=== PATIENT | female | born 1985 | race Caucasian/White ===

== ENCOUNTER 2022-10-08 15:13 | Emergency (ER) | payer OTHER, SELFPAY ==
[2022-10-08 15:14] VITALS: BP 141/83; PULSE 86; RESP 20; TEMP 36.9; O2SAT 98; BMI 53.3
--- NOTE | 2022-10-08 16:20 | EDS_ITS ---
HPI HPI - URI History of Present Illness Chief Complaint: Cough Narrative Narrative: 37-year-old female presenting with cough which has had for several weeks after having COVID-19. She no longer has fevers, chills. She does describe some body aches from time to time. She is been seen in urgent care twice and put on 2 rounds of steroids. She has not been on any antibiotics. She states she had a chest x-ray 2 weeks ago which was normal. She is taking Mucinex, [id number] cold medicine and she states its just not going away. She reports a dry raspy cough. No production of sputum. No chest pain. No history of asthma or COPD. She states she is a non-smoker. ROS ROS ED Constitutional Constitutional ED: Denies chills or fever(s) Eyes Eyes: Denies change in vision or diplopia ENT ENT ED: Denies rhinorrhea or sore throat Cardiovascular Cardiovascular: Denies palpitations or racing heartbeat Respiratory/Chest Respiratory/Chest: Reports cough; Denies dyspnea Gastrointestinal Gastrointestinal: Denies abdominal pain, nausea or vomiting Genitourinary Genitourinary ED: Denies dysuria or hematuria Musculoskeletal Musculoskeletal: Reports myalgias Integumentary Denies abscess or Abrasions Neurologic Neurologic: Denies headache(s) or paresthesias Psychiatric Psychiatric: Denies anxiety or depression [facility] Medical History COVID Home Medications docusate sodium 100 mg capsule (DOK) 100 mg PO BID PRN PRN Constipation ##60 02/04/16 [Rx Last Taken Unknown] ibuprofen 600 mg tablet 600 mg PO Q6H PRN PRN Pain ##60 02/04/16 [Rx Last Taken Unknown] albuterol sulfate 90 mcg/actuation aerosol inhaler 2 puff inhalation Q6H PRN PRN SOB 10/08/22 [History Last Taken Unknown] Allergy/AdvReac Type Severity Reaction Status Date / Time No Known Allergies Allergy Verified 10/08/22 15:14 Social History Smoking Status: Current every day smoker tobacco type: cigarettes EXAM Physical Exam Const Vital Signs: 10/08/22 15:14 10/08/22 16:40 Temperature 98.5 F Temperature Source Temporal Pulse Rate 86 Respiratory Rate 20 H Respiratory Effort Normal Non-Labored Respiratory Depth Normal Respiratory Pattern Normal Blood Pressure 141/83 H Blood Pressure Mean 102 Pulse Ox 98 Oxygen Delivery Method Room Air Room Air Positive well nourished General Appearance ED: NAD and pallor HEENT Reports moist mucous membranes normocephalic and atraumatic Throat: posterior oropharynx normal Eyes PERRL and EOMs intact bilaterally Neck no lymphadenopathy Resp normal respiratory effort and clear to auscultation bilaterally Auscultation: Negative for rales, rhonchi or wheezes Cardio Rate: regular rate Rhythm: regular rhythm Neuro oriented x3 and CN's II-XII intact bilaterally Sensorium / Orientation: alert Psych mental status grossly normal Skin General Skin Exam: jaundice and pallor MDM MDM MDM Narrative Medical decision making narrative: Patient presenting with a chronic cough now for several weeks. She had a chest x-ray 2 weeks ago. I do not think viral testing is going to help year because this been so long. She is not reporting any fevers. She is not short of breath. 2 views of the chest on my interpretation show no acute cardiopulmonary process. Radiology interpreted agrees. This has been an ongoing issue and the patient has arranged follow-up. I feel she is already on the appropriate medications. I do not believe she needs another round of steroids. Patient discharged in stable condition. Impression: 1. Cough 2. Dyspnea Lab Data Attestation: I reviewed the patient's lab results. Radiography Diagnostic Testing: Clinical Impression(s) from Imaging Studies Chest X-Ray 10/08/22 16:30 IMPRESSION: No acute abnormal cardiopulmonary finding. Electronically Signed: Azeem Moreno MD at 16:57 EST , Discharge Plan Triage Chief Complaint: Cough ED Provider: Dilshad Lomeli Dx/Rx/DC Orders Instructions: ED Dyspnea Prescriptions: No Action docusate sodium [DOK] 100 MG capsule 100 mg PO BID PRN PRN (Reason: Constipation) Qty: 60 1RF ibuprofen 600 MG tablet 600 mg PO Q6H PRN PRN (Reason: Pain) Qty: 60 1RF albuterol sulfate 90 mcg/actuation HFA aerosol inhaler 2 puff INHALATION Q6H PRN PRN (Reason: SOB) Label Comments: INHALE 1 PUFF BY MOUTH THREE TIMES DAILY NEEDED FOR 14 DAYS Primary Care Provider: Sana Garcia Referrals: Sana Garcia MD [Primary Care Provider] - Disposition Disposition: Home, Self Care
--- NOTE | 2022-10-08 16:30 | RAD_ITS ---
STUDY: X-RAY CHEST REASON FOR EXAM: Female, 37 years old. Cough TECHNIQUE: PA and lateral views of the chest. COMPARISON: None. FINDINGS: The lungs are clear and expanded. There is no demonstrated pleural abnormality. Normal size heart. Normal mediastinum and juice. Normal visualized pulmonary arteries. Normal visualized aortic arch and descending thoracic aorta. There is no demonstrated abnormality of the visualized soft tissue structures of the upper abdomen. RAD/Chest PA and Lateral IMPRESSION: No acute abnormal cardiopulmonary finding. Electronically Signed: Azeem Moreno MD at 16:57 EST ,
[2022-10-08 16:40] VITALS: O2SAT 98
[2022-10-08 19:14] VITALS: BP 121/71; PULSE 88; RESP 22; O2SAT 96
== END 2022-10-08 19:21 | disposition home or self-care (01) ==
PROVIDERS: Emergency Provider Student in an Organized Health Care Education/Training Program; PCP Internal Medicine; Visit Provider Student in an Organized Health Care Education/Training Program
DX: R06.00 Dyspnea, unspecified (principal); R05.9 Cough, unspecified; F17.210 Nicotine dependence, cigarettes, uncomplicated
CPT/HCPCS: 71046; 99282

== ENCOUNTER → 2022-10-14 | Outpatient (CLI) | payer OTHER, SELFPAY ==
[2022-10-14 17:06] LABS: Absolute Neutrophil Count 7.4 X10^3/uL (2.0-7.7); Basophil# 0.15 X10^3/uL; Basophil% 1.2 % (0-1); Eosinophil# 0.46 X10^3/uL; Eosinophils% 3.7 % (0-5); Hematocrit 42.5 % (37-47); Hemoglobin 14.4 g/dL (12.0-15.0); Lymphocyte % 27.4 % (19-41); Mean Corp Hgb Conc 33.9 g/dL (32-36); Mean Corpuscular Hgb 28.9 pg (27.0-32.0); Mean Corpuscular Volume 85.2 fL (81-99); Mean Platelet Vol. 8.3 fl (6.2-12.0); Monocyte# 0.89 X10^3/uL; Monocyte% 7.2 % (0-10); NRBC Flagged by Analyzer 0 % (0-5); Neutrophil # 7.41 X10^3/uL (2.7-7.7); Neutrophil % 59.7 % (47-70); Platelet Count 543 K/mm3 (150-450); RBC Distribution Width SD 39.4 fl (35.1-43.9); Red Blood Count 4.99 M/mm3 (4.2-5.4); White Blood Count 12.4 K/mm3 (4.4-11.0)
[2022-10-14 18:08] LABS: ALB/GLOB Ratio 1.1 RATIO (0.9-2.4); AST(SGOT) 18 U/L (15-37); Alanine Aminotransfer ALT/SGPT 34 U/L (13-56); Albumin, Serum 3.9 g/dL (3.2-5.0); Alkaline Phosphatase 55 U/L (45-117); Anion Gap 5 (5-15); BUN 15 mg/dL (7-18); BUN/Creat Ratio 15.8 RATIO (10-20); Calcium,Total 9.4 mg/dL (8.5-10.1); Chloride 110 mmol/L (98-107); Creatinine, Serum 0.95 mg/dL (0.55-1.02); EST Glomerular Filtration Rate 70 mL/min (>60); Est Glom Filt Rate - Afr Amer 85 mL/min (>60); Globulin 3.6 g/dL (2.2-4.2); Glucose 98 mg/dL (74-106); Potassium 4.7 mmol/L (3.5-5.1); Protein, Total 7.5 g/dL (6.4-8.2); Sodium Level 141 mmol/L (136-145)
[2022-10-18 19:08] LABS: Mycoplasma Pneum AB IgG 211 U/mL (0-99); Mycoplasma pneum. AB IgM < 770 U/mL (0-769)
== END | disposition home or self-care (01) ==
LOC: BIMLAB 16:14
PROVIDERS: PCP Internal Medicine; Referring Provider Internal Medicine; Visit Provider Internal Medicine
DX: R05.3 Chronic cough (principal); Z20.822 Contact with and (suspected) exposure to COVID-19
CPT/HCPCS: 36415; 80053; 85025; 86738; 87633; 87635; U0003; U0005

== ENCOUNTER → 2022-10-21 | Outpatient (CLI) | payer OTHER, SELFPAY ==
--- NOTE | 2022-10-21 13:50 | CT_ITS ---
STUDY: CT CHEST WITH CONTRAST REASON FOR EXAM: Female, 37 years old. Persistent cough, shortness of breath RADIATION DOSAGE (If Supplied By Facility): CTDIvol = ( 14.88 ) mGy, DLP = ( 702.25 ) mGycm TECHNIQUE: Transaxial imaging was performed following intravenous administration of IV 100mL Isovue-300. Multiplanar coronal and sagittal images were reformatted. Individualized dose optimization techniques were used for this CT. COMPARISON: Comparison is made with prior chest radiograph dated 10/08/2022. FINDINGS: CHEST Mild degree of increased markings in the anterior aspect of the left upper lobe. This may represent either early infiltrate versus atelectatic changes. There is no demonstrated pleural abnormality. Normal heart and pericardium. Normal mediastinum. Normal hilar regions. Normal unenhanced pulmonary arteries. Normal aorta arch and descending thoracic aorta. Normal osseous structures. There is no demonstrated abnormality of the visualized upper abdomen. CT/Chest WITH Contrast IMPRESSION: Increased markings in the anterior aspect of the left upper lobe suggestive of either atelectasis and/or early infiltrate. Electronically Signed: Regan Han MD at 14:40 EST ,
== END | disposition home or self-care (01) ==
LOC: CT 13:33
PROVIDERS: PCP Internal Medicine; Referring Provider Internal Medicine; Visit Provider Internal Medicine
DX: R06.02 Shortness of breath (principal); R05.3 Chronic cough
CPT/HCPCS: 71260; Q9967

== ENCOUNTER → 2022-11-08 | Outpatient (CLI) | payer OTHER, SELFPAY ==
[2022-11-08 10:28] LABS: Absolute Lymphocyte Count 3.38 X10^3/uL (0.83-4.51); Absolute Neutrophil Count 5.2 X10^3/uL (2.0-7.7); Basophil# 0.11 X10^3/uL; Basophil% 1.1 % (0-1); Eosinophil# 0.28 X10^3/uL; Eosinophils% 2.8 % (0-5); Hematocrit 41.5 % (37-47); Hemoglobin 13.7 g/dL (12.0-15.0); Lymphocyte # 3.38 X10^3/ul (0.83-4.51); Lymphocyte % 33.3 % (19-41); Mean Corpuscular Hgb 28.1 pg (27.0-32.0); Mean Corpuscular Volume 85.2 fL (81-99); Mean Platelet Vol. 8.1 fl (6.2-12.0); Monocyte% 10.8 % (0-10); NRBC Flagged by Analyzer 0 % (0-5); Neutrophil # 5.24 X10^3/uL (2.7-7.7); Neutrophil % 51.5 % (47-70); Platelet Count 531 K/mm3 (150-450); RBC Distribution Width SD 40.1 fl (35.1-43.9); Red Blood Count 4.87 M/mm3 (4.2-5.4); White Blood Count 10.2 K/mm3 (4.4-11.0)
[2022-11-08 10:40] LABS: Anion Gap 6 (5-15); BUN 19 mg/dL (7-18); BUN/Creat Ratio 22.6 RATIO (10-20); Calcium,Total 9.1 mg/dL (8.5-10.1); Chloride 107 mmol/L (98-107); Creatinine, Serum 0.84 mg/dL (0.55-1.02); EST Glomerular Filtration Rate 81 mL/min (>60); Est Glom Filt Rate - Afr Amer 97 mL/min (>60); Glucose 96 mg/dL (74-106); Potassium 4.5 mmol/L (3.5-5.1); Sodium Level 139 mmol/L (136-145)
== END | disposition home or self-care (01) ==
PROVIDERS: PCP Internal Medicine; Referring Provider Internal Medicine; Visit Provider Internal Medicine
DX: U07.1 COVID-19 (principal); J40 Bronchitis, not specified as acute or chronic; Z87.01 Personal history of pneumonia (recurrent)
CPT/HCPCS: 36415; 80048; 85025

== ENCOUNTER → 2022-12-29 | Outpatient (CLI) | payer OTHER, SELFPAY ==
--- NOTE | 2022-12-29 17:49 | CT_ITS ---
EXAM: CT ANGIOGRAPHY CHEST WITHOUT AND WITH INTRAVENOUS CONTRAST CLINICAL INDICATION: bronchiectasis vs. bronchitis LANEY lingula. TECHNIQUE: Helically acquired angiography images were obtained of the chest without and with intravenous contrast. This CT exam was performed using one or more of the following dose reduction techniques: automated exposure control, adjustment of the mA and/or kV according to patient size, and/or use of iterative reconstruction technique. This report was created using [employer] report generation technology. MIP reconstructed images were created and reviewed. CONTRAST: 100 cc of Isovue-370 IV. RADIATION DOSE: CTDIvol = 23.02 mGy, DLP = 715.43 mGy-cm. COMPARISON: 12/22/2021. FINDINGS: PULMONARY ARTERIES: Unremarkable. Normal in caliber. No evidence of pulmonary embolism. AORTA: Unremarkable. Normal in caliber. No evidence of dissection. GREAT VESSELS OF AORTIC ARCH: Unremarkable. Normal in caliber. No evidence of dissection. LUNGS AND PLEURAL SPACES: Focal area of scarring left upper lobe unchanged since previous exam. No mass. No pleural effusion or thickening. No pneumothorax. HEART: Unremarkable. Heart size is normal. No pericardial effusion. No signs of right heart strain, ratio of right ventricle to left ventricle measures less than 1. MEDIASTINUM: Unremarkable. No mediastinal or hilar adenopathy. Esophagus is unremarkable. No hiatal hernia. THYROID: Unremarkable. No thyroid lesions. BONES/JOINTS: Unremarkable. No suspicious lytic or blastic abnormality. CT/CTA Chest W/WO Contrast IMPRESSION: 1. No pulmonary embolism or dissection. 2. Focal area of scarring left upper lobe unchanged since previous exam. Electronically Signed: Hussain Diana MD at 4:15 EST ,
== END | disposition home or self-care (01) ==
LOC: CT 17:46
PROVIDERS: PCP Internal Medicine; Referring Provider Internal Medicine; Visit Provider Internal Medicine
DX: U07.1 COVID-19 (principal); J40 Bronchitis, not specified as acute or chronic; Z87.01 Personal history of pneumonia (recurrent)
CPT/HCPCS: 71275; Q9967

== ENCOUNTER → 2023-01-10 | Outpatient (CLI) | payer OTHER, SELFPAY ==
[2023-01-19 12:54] LABS: HPV APTIMA, High Risk Negative (Negative)
== END | disposition home or self-care (01) ==
PROVIDERS: PCP Internal Medicine; Referring Provider Nurse Practitioner Women's Health; Visit Provider Nurse Practitioner Women's Health
DX: Z12.4 Encounter for screening for malignant neoplasm of cervix (principal)
CPT/HCPCS: 87624; 88175; G0145

== ENCOUNTER → 2023-01-11 | Outpatient (CLI) | payer OTHER, SELFPAY ==
[2023-01-14 00:07] LABS: Alternaria tenuis <0.10 kU/L (Class 0); Ash, White <0.10 kU/L (Class 0); Aspergillus fumigatus <0.10 kU/L (Class 0); Bermuda Grass <0.10 kU/L (Class 0); Birch <0.10 kU/L (Class 0); Black Walnut <0.10 kU/L (Class 0); Cat Hair / Dander,Stand <0.10 kU/L (Class 0); Cedar, Mountain <0.10 kU/L (Class 0); Cladosporium herbarum <0.10 kU/L (Class 0); Cockroach, American <0.10 kU/L (Class 0); Cottonwood <0.10 kU/L (Class 0); D farinae Mite <0.10 kU/L (Class 0); D pteronyssinus <0.10 kU/L (Class 0); Dog Epithelia <0.10 kU/L (Class 0); Elm, American White <0.10 kU/L (Class 0); Immunoglobulin E 10 IU/mL (6-495); Maple/Box Elder <0.10 kU/L (Class 0); Mulberry, White <0.10 kU/L (Class 0); Oak, White <0.10 kU/L (Class 0); Pecan <0.10 kU/L (Class 0); Penicillium Notatum <0.10 kU/L (Class 0); Pigweed, Rough <0.10 kU/L (Class 0); Ragweed, Short/Common <0.10 kU/L (Class 0); Russian Thistle <0.10 kU/L (Class 0); Sheep Sorrel <0.10 kU/L (Class 0); Sycamore, American <0.10 kU/L (Class 0); Timothy Grass <0.10 kU/L (Class 0)
[2023-01-14 13:35] LABS: B. pertussis IgA 2.2 index (0.0-0.9); B. pertussis IgG 5.11 index (0.00-0.94); B. pertussis IgM < 1.0 index (0.0-0.9); Immunoglobulin E 9 IU/mL (6-495); Mouse Urine <0.10 kU/L (Class 0)
== END | disposition home or self-care (01) ==
PROVIDERS: PCP Internal Medicine; Referring Provider Internal Medicine; Visit Provider Internal Medicine
DX: R05.3 Chronic cough (principal)
CPT/HCPCS: 36415; 82785; 86003; 86615

== ENCOUNTER → 2024-03-30 | Outpatient (CLI) | payer OTHER, SELFPAY ==
--- NOTE | 2024-03-30 18:02 | US_ITS ---
HISTORY: bleeding. TECHNIQUE: Transabdominal and transvaginal pelvic ultrasound was performed with lozano scale , spectral Doppler, and color Doppler evaluation. 111 images. COMPARISON: None. FINDINGS: Limited evaluation due to body habitus and overlying bowel gas. UTERUS: 11.8 x 8.9 x 7.8 cm. 7.5 x 7.6 x 6 cm round hypoechoic lesion posteriorly. ENDOMETRIAL THICKNESS: 8 mm. RIGHT OVARY: 2.7 x 3 x 3.4 cm. Vascular flow demonstrated. No adnexal masses LEFT OVARY: Not visualized. No adnexal masses FREE FLUID: None. US/Pelvic (Non ) IMPRESSION: 7.6 cm uterine leiomyoma. Unremarkable right ovary. Nonvisualization of the left ovary. Electronically Signed: Giovana Nelson MD at 11:50 EDT ,
== END | disposition home or self-care (01) ==
LOC: US 18:00
PROVIDERS: PCP Internal Medicine; Visit Provider Nurse Practitioner Women's Health
DX: N85.2 Hypertrophy of uterus (principal); N92.0 Excessive and frequent menstruation with regular cycle; N94.6 Dysmenorrhea, unspecified
CPT/HCPCS: 76856

== ENCOUNTER 2024-05-08 11:55 | Outpatient (CLI) | payer OTHER, SELFPAY | END 2024-05-08 23:59 | disposition home or self-care (01) | LOC: LABSPEC 11:57 | PROVIDERS: PCP Internal Medicine; Referring Provider Nurse Practitioner; Visit Provider Nurse Practitioner | DX: J06.9 Acute upper respiratory infection, unspecified (principal) | CPT/HCPCS: 87631 ==

== ENCOUNTER → 2025-04-22 | Outpatient (CLI) | payer OTHER, SELFPAY ==
[2025-04-22 12:55] LABS: Absolute Lymphocyte Count 2.17 X10^3/uL (0.83-4.51); Absolute Neutrophil Count 3.5 X10^3/uL (2.0-7.7); Basophil# 0.11 X10^3/uL; Basophil% 1.7 % (0-1); Eosinophil# 0.17 X10^3/uL; Eosinophils% 2.6 % (0-5); Hematocrit 37.5 % (37-47); Hemoglobin 11.8 g/dL (12.0-15.0); Lymphocyte # 2.17 X10^3/ul (0.83-4.51); Mean Corp Hgb Conc 31.5 g/dL (32-36); Mean Corpuscular Volume 82.6 fL (81-99); Mean Platelet Vol. 8.7 fl (6.2-12.0); Monocyte# 0.58 X10^3/uL; Monocyte% 8.8 % (0-10); NRBC Flagged by Analyzer 0 % (0-5); Neutrophil # 3.51 X10^3/uL (2.7-7.7); Neutrophil % 53.4 % (47-70); Platelet Count 491 K/mm3 (150-450); RBC Distribution Width CV 13.1 % (11.6-14.6); Red Blood Count 4.54 M/mm3 (4.2-5.4); White Blood Count 6.6 K/mm3 (4.4-11.0)
[2025-04-22 14:01] LABS: ALB/GLOB Ratio 1.4 RATIO (0.9-2.4); AST(SGOT) 13 U/L (<=31); Alanine Aminotransfer ALT/SGPT 15 U/L (<=34); Alkaline Phosphatase 50 U/L (35-104); Anion Gap 10 (5-15); BUN 16 mg/dL (4-19); BUN/Creat Ratio 20.7 RATIO (10-20); Calcium,Total 8.8 mg/dL (7.6-11.0); Chloride 107 mmol/L (98-108); Cholesterol 134 mg/dL (<=200); Creatinine, Serum 0.79 mg/dL (0.70-1.20); EST Glomerular Filtration Rate 96 (>60); Globulin 2.9 g/dL (2.2-4.2); Glucose 100 mg/dL (70-99); High Density Lipoprotein 38 mg/dL; Low Density Lipoprotein Calc. 76 mg/dL; Potassium 4.2 mmol/L (3.3-5.1); Protein, Total 6.9 g/dL (5.9-8.4); Sodium Level 141 mmol/L (133-145); Total Bilirubin 0.53 mg/dL (0.00-1.30); Triglycerides 100 mg/dL; Very Low Density Lipoprotein 20 mg/dL (5-40)
[2025-04-22 14:05] LABS: Vitamin D,25 Hydroxy 32.8 ng/mL (30-100)
== END | disposition home or self-care (01) ==
LOC: BIMLAB 09:30
PROVIDERS: PCP Internal Medicine; Referring Provider Internal Medicine; Visit Provider Internal Medicine
DX: Z13.6 Encounter for screening for cardiovascular disorders (principal); I10 Essential (primary) hypertension; E55.9 Vitamin D deficiency, unspecified
CPT/HCPCS: 36415; 80053; 80061; 82306; 84443; 85025

== ENCOUNTER → 2025-05-06 | Outpatient (CLI) | payer OTHER, SELFPAY | END | disposition home or self-care (01) | LOC: OPBI 12:38 | PROVIDERS: PCP Internal Medicine; Referring Provider Internal Medicine; Visit Provider Internal Medicine | DX: Z12.31 Encounter for screening mammogram for malignant neoplasm of breast (principal) | CPT/HCPCS: 77063; 77067 ==

== ENCOUNTER → 2025-05-14 | Outpatient (CLI) | payer OTHER, SELFPAY ==
--- NOTE | 2025-05-14 12:31 | US_ITS ---
PROCEDURE: BREAST LIMITED UNILATERAL 05/14/2025 REASON FOR EXAM: F, Age 39 y/o , ABNORMAL MAMMOGRAM COMPARISON: Prior mammogram dated May 06, 2025.. TECHNIQUE: BREAST LIMITED UNILATERAL FINDINGS: The mammographic abnormality corresponds to a 1.7 cm 1.6 cm 1.1 cm well-defined hypoechoic nodule at the 8 o'clock position of the breast at 9 cm from the nipple. There is evidence of some posterior acoustical shadowing. This may represent a fibroadenoma although targeted biopsy recommended. US/Breast Limited Unilateral IMPRESSION: The mammographic abnormality corresponds to a 1.7 cm 1.6 cm 1.1 cm well-defined hypoechoic solid nodule with some posterior acoustical shadowing as described. This most likely represents a fibroadenoma. Biopsy recommended. BI-RADS 4: SUSPICIOUS ABNORMALITY. RECOMMENDATION: Biopsy Recommended Reading Location: [id number]
--- NOTE | 2025-05-14 12:31 | US_ITS ---
PROCEDURE: BREAST LIMITED UNILATERAL 05/14/2025 REASON FOR EXAM: F, Age 39 y/o , ABNORMAL MAMMOGRAM COMPARISON: Prior mammogram dated May 06, 2025.. TECHNIQUE: BREAST LIMITED UNILATERAL FINDINGS: The mammographic abnormality corresponds to a 1.7 cm 1.6 cm 1.1 cm well-defined hypoechoic nodule at the 8 o'clock position of the breast at 9 cm from the nipple. There is evidence of some posterior acoustical shadowing. This may represent a fibroadenoma although targeted biopsy recommended. US/Breast Limited Unilateral IMPRESSION: The mammographic abnormality corresponds to a 1.7 cm 1.6 cm 1.1 cm well-defined hypoechoic solid nodule with some posterior acoustical shadowing as described. This most likely represents a fibroadenoma. Biopsy recommended. BI-RADS 4: SUSPICIOUS ABNORMALITY. RECOMMENDATION: Biopsy Recommended Reading Location: [id number]
== END | disposition home or self-care (01) ==
LOC: OPUS 12:29
PROVIDERS: PCP Internal Medicine; Referring Provider Internal Medicine; Visit Provider Internal Medicine
DX: N63.11 Unspecified lump in the right breast, upper outer quadrant (principal)
CPT/HCPCS: 76642

== ENCOUNTER → 2025-05-20 | Outpatient (CLI) | payer OTHER, SELFPAY ==
--- NOTE | 2025-05-20 14:00 | BRBX_PTH ---
PATIENT: JORDIN TOBAR LOC: [facility] U#:[id number] AGE/SX: 39/F ROOM: RE05/20/[address]: Dr. Adore Stacy MD : 1985 BED: DIS: 05/20/2025 SPEC #: [id number] RECD: 05/20/25 14:39 STATUS: MICKEY REQ #: [id number] ELLYN: 05/20/25 14:[address]: Adore Stacy DEPT: SURGICAL PATHOLOGY RECD BY: Tylor Mendez ENTERED: 05/21/25 08:11 SP TYPE: BREAST BX OTHR DR: Dr. Sana Garcia MD Tissues: A - Right breast, NOS Procedures: Surgery Specimen Level IV HEADER OPERATION: Right breast biopsy PRE-OP DIAGNOSIS: Right breast biopsy, likely fibroadenoma TISSUE SUBMITTED: A- Right breast tissue - 9o'clock, 9cm from nipple Ischemic Time: <1 minute Fixation Time: 29 hours, 30 minutes MICROSCOPIC DIAGNOSIS A. Breast, right, 9:00, 9 CMFN, core biopsy: - Focal fibrosis with benign breast ducts, suggestive of fibroadenoma. - Benign adipose tissue. - No evidence of malignancy seen in these sections. MICROSCOPIC DESCRIPTION Slides are reviewed. GROSS DESCRIPTION A. Received in formalin labeled with the patient's name and date of . Designated as R breast are 2 enriquez-yellow soft tissue cores, 0.8 cm and 0.9 cm in length by 0.1 cm in diameter. Entirely submitted in 2 cassettes. Cold ischemic time: <1 minuteFormalin fixation time: 29 hours, 30 minutes MO 05/20/2025 CPT:27751
== END | disposition home or self-care (01) ==
PROVIDERS: PCP Internal Medicine; Referring Provider Surgery; Visit Provider Surgery
DX: N60.31 Fibrosclerosis of right breast (principal)
CPT/HCPCS: 88305

== ENCOUNTER → 2025-05-23 | Outpatient (CLI) | payer OTHER, SELFPAY ==
--- OUTSIDE RECORDS SUMMARY | 2025-05-23 21:03 | XMS RPT_ITS | CCD ---
Author Organization [facility]ini[facility] Care Team Providers Care Equity Holder Name Role Phone Unavailable Primary Care Provider Unavailabl e Care Physician, No Primary Referring Provider Un available Dr. Sana Garcia Primary Care Provider Dr. Sana Garcia Attending Provider [phone] Dr. Sana Garcia Referring Provider [phone] Dr. Woody Melendez Attending Provider Care Physician, No Primary Referring Provider Un available Dr. Sana Garcia Primary Care Provider Dr. Sana Garcia Attending Provider [phone] Dr. Sana Garcia Referring Provider [phone] Dr. Woody Melendez Attending Provider Dwale LEAD FURNACE OPERATOR, SHER Ontiveros Attending Provider Unavailable Primary Care Provider Unavailabl e Dr. Sana Garcia MD Primary Care Provider [phone] Dr. Sana Garcia MD Attending Provider Dr. Sana Garcia MD Referring Provider Dr. Adore Stacy MD Attending Provider Laie, Sana Primary Care Unavailable Jose, Sana Referring Unavailable Laie, Sana Attending Unavailable Laie, Sana Primary Care Unavailable Jose, Sana Referring Unavailable Jose, Sana Attending Unavailable Adore Stacy Attending Unavailable Jose, Sana Primary Care Unavailable Jose, Sana Referring Unavailable Laie, Sana Primary Care Unavailable Jose, Sana Referring Unavailable Laie, Sana Attending Unavailable Jose, Sana Primary Care Unavailable Laie Sana Referring Unavailable Sana Garcia Attending Unavailable Adore Stacy Referring Unavailable Adore Stacy Attending Unavailable Laie, Sana Primary Care Unavailable Jose, Sana Referring Unavailable Jose Sana Attending Unavailable Jose Sana Primary Care Unavailable Regis LEE, Dr. Avitia Referring Provider Medications Current Medications Medication Drug Class(es) Dates Sig (Normalized) Sig (Original) acetaminophen 500 mg oral tablet (10 sources) Start: 10-14-2022 take 1 tablet by mouth every six hours as needed Acetaminophen (Tylenol Extra Strength) 500 mg tablet Active 500 mg PO EVERY 6 HOURS as needed October 14, 2022 1:00am Albuterol (19 sources) beta2-Adrenergic Agonist Start: 10-14-2022 take 2.5 mg by inhalation every four hours Albuterol Sulfate Active 2.5 MG INHALATION Q4H October 14, 2022 1:00am Start: 10-14-2022 take 2.5 mg by inhal ation every four hours Albuterol Sulfate Active 2.5 MG INHALATION Q4H 90 October 14, 2022 12:00am Start: 10-08-2022 Albuterol Sulf ate 90 mcg/actuation HFA aerosol inhaler Active 2 NMA INHALATION EVERY 6 HOURS NEEDED as needed for SOB October 08, 2022 1:00am Start: 10-08-2022 take 1 puff(s) by in halation every six hours as needed Albuterol Sulfate Active 2 PUFF INHALATION EVERY 6 HOURS NEEDED October 08, 2022 1:00am Start: 07-12-2018 End: 10-27-2024 take 2 puff(s) by inhalation every four hours as needed albuterol HFA (PROVENTIL HFA, VENTOLIN HFA) 90 mcg/actuation inhaler Inhale 2 Puffs as instructed every 4 hours as needed. 1 Inhaler 07/12/2018 10/27/2024 Discontinued Comment on above: Inhale 2 Puffs as in structed every 4 hours as needed. Albuterol Sulfate 2.5 mg /3 mL (0.083 %) solution for nebulization (6 sources) Start: 10-14-20 take 2.5 mg by inhalation every four hours as needed for wheezing Albuterol Sulfate 2.5 mg /3 mL (0.083 %) solution for nebulization Active 2.5 mg INHALATION Q4H as needed for shortness of breath or wheezing 90 0 October 14, 2022 1:00am Start: 10-14-2022 take 2.5 mg by inhal ation every four hours as needed for wheezing Albuterol Sulfate 2.5 mg /3 mL (0.083 %) solution for nebulization Active 2.5 mg INHALATION Q4H as needed for shortness of breath or wheezing October 14, 2022 1:00am azithromycin 250 mg oral tablet (19 sources) Macrolide Antimicrobial Start: 10-27-2024 End: 11-01-2024 take 2 tablets by mouth once daily, then take 1 tablet by mouth once daily azithromycin (ZITHROMAX) 250 mg tablet Indications: Sinobronchitis , Exposure to pertussis Take 2 tablets by mouth once daily for 1 day, THEN 1 tablet once daily for 4 days. 6 tablet 10/27/2024 11/01/2024 Active Start: 11-08-2022 End: 05-23-2023 Azithromycin 250 mg tablet D iscontinued 0 PO .COMPLEX 6 January 06, 2023 1:00am May 23, 2023 10:13am For 250 mg dose pack: take 500 mg today (day 1), then 250 mg for 4 days (days 2-5) PO Start: 11-08-2022 End: 01-06-2023 Azithromycin Active 0 PO .CO MPLEX 6 January 06, 2023 1:00am For 250 mg dose pack: take 500 mg today (day 1), then 250 mg for 4 days (days 2-5) PO cholecalciferol 0.25 mg oral capsule (10 sources) Vitamin D Start: 10-14-2022 take 1 capsule by mouth every other day Cholecalciferol (Vitamin D3) 250 mcg (10,000 unit) capsule Active 250 ug PO .EVERY OTHER DAY October 14, 2022 1:00am doxycycline monohydrate 100 mg oral tablet (11 sources) Tetracycline- class Drug Start: 07-03-2023 End: 07-10-2023 take 1 tablet by mouth twice daily doxycycline monohydrate 100 mg tablet Indications: Lower resp. tract infection Take 1 tablet by mouth twice daily for 7 days. 14 tablet 0 07/03/2023 07/10/2023 Active Start: 10-21-2022 End: 11-08-2022 take 1 capsule by mouth twice daily Doxycycline Hyclate 100 mg capsule Discontinued 100 mg PO TWICE A DAY 10 October 21, 2022 1:00am November 08, 2022 9:54am Comment on above: Take 1 tablet by [facility] twice daily for 7 days. escitalopram 5 mg oral tablet (6 sources) Serotonin Reuptake Inhibitor Start: 04-22-20 25 take 1 tablet by mouth once daily Escitalopram Oxalate (Lexapro) 5 mg tablet Active 5 mg PO daily 30 April 22, 2025 12:00am fluticasone propionate 0.05 mg/actuat metered dose nasal spray (6 sources) Corticosteroid Start: 05-08-20 24 take 50 ug nasal route once daily Fluticasone Propionate (Allergy Relief (Fluticasone)) 50 mcg/actuation spray,suspension Active 2 NMA INTRANASAL DAILY 16 May 08, 2024 12:00am administer into each nostril Ipratropium (2 sources) Anticholinergic Start: 01-12-20 Ipratropium [place] Active 2 SPRAY INTRANASAL 2 to 3 times per day January 11, 2023 12:00am administer into each nostril lisinopril 2.5 mg oral tablet (6 sources) Angiotensin Converting Enzyme Inhibitor Start: 04-22-20 25 take 1 tablet by mouth once daily Lisinopril 2.5 mg tablet Active 2.5 mg PO daily 30 April 22, 2025 12:00am predniSONE 10 mg oral tablet (1 source) Start: 09-25-20 End: 10-04-20 predniSONE (DELTASONE) 10 mg tablet Take 4 tabs daily for 3 days, then 2 tabs daily for 3 days, then 1 tab daily for 3 days with food. 21 tablet 0 09/25/2022 10/04/2022 Active Comment on above: Take 4 tabs daily fo r 3 days, then 2 tabs daily for 3 days, then 1 tab daily for 3 days with food. zinc gluconate 30 mg oral tablet (10 sources) Start: 10-14-20 22 take 1 tablet by mouth once daily Zinc Gluconate 30 mg tablet Active 30 mg PO DAILY October 14, 2022 1:00am Completed/Discontinued Medications Medication Drug Class(es) Dates Sig (Normalized) Sig (Original) benzonatate 100 mg oral capsule (12 sources) Non-narcotic Antitussive Start: 11-08-2022 End: 01-06-2023 take 1 tablet by mouth every six hours as needed for cough Benzonatate 100 mg capsule Discontinued 100 mg PO EVERY 6 HOURS as needed for cough 30 0 November 08, 2022 1:00am January 06, 2023 5:02pm take 1 tab every 6 hours as needed for cough Start: 09-25-2022 End: 10-27-2024 take 1 capsule by mouth every eight hours as needed benzonatate (TESSALON PERLES) 100 mg capsule Take 1 capsule by mouth three times daily as needed for cough. 21 capsule 09/25/2022 10/27/2024 Discontinued Comment on above: Take 1 capsule by mo [facility] three times daily as needed for cough. codeine phosphate 2 mg/ml / guaiFENesin 20 mg/ml oral solution (10 sources) Opioid Agonist Start: 10-14-2022 End: 11-08-2022 take 1 mL by mouth every six hours as needed for cough Codeine-Guaifenesin 10-100 mg/5 mL liquid Discontinued 5 mL PO EVERY 6 HOURS as needed for cough 118 0 October 14, 2022 1:00am November 08, 2022 9:54am Refractory chronic cough Chronic cough Start: 10-14-2022 End: 11-08-2022 take 1 mL by mouth every six hours Codeine-Guaifenesin Discontinued 5 ML PO EVERY 6 HOURS 118 October 14, 2022 1:00am November 08, 2022 9:54am dexamethasone 4 mg oral tablet (10 sources) Corticosteroid Start: 10-14-2022 End: 11-08-2022 take 4 tablets by mouth once daily Dexamethasone 4 mg tablet Discontinued 16 mg PO DAILY 8 0 October 14, 2022 1:00am November 08, 2022 9:54am Start: 10-14-2022 End: 11-08-2022 take 16 mg by mouth once daily Dexamethasone Discontin ued 16 MG PO DAILY 8 October 14, 2022 1:00am November 08, 2022 9:54am dextromethorphan hydrobromide 1 mg/ml / guaiFENesin 20 mg/ml oral solution (9 sources) Uncompetitive R-wousng-I-aspartate Receptor Antagonist, Sigma-1 Agonist Start: 11-08-2022 End: 05-23-2023 take 20 mL by mouth every four hours as needed for cough Dextromethorphan-Guaifenesin (Robitussin Cough-Chest Hood Dm) 5-100 mg/5 mL liquid Discontinued 20 mL PO Q4H as needed for cough 355 2 November 08, 2022 1:00am May 23, 2023 10:13am use 20 ml every 4 hours as needed for cough Start: 11-08-2022 take 20 mL by mouth every four hours as needed for cough Dextromethorphan-Guaifenesin (Robitussin Cough-Chest Hood Dm) 5-100 mg/5 mL liquid Active 20 ML PO Q4H 355 November 08, 2022 1:00am use 20 ml every 4 hours as needed for cough docusate sodium 100 mg oral capsule (11 sources) Start: 02-04-2016 End: 10-14-2022 take 1 capsule by mouth twice daily as needed for constipation Docusate Sodium (Colace) 100 MG capsule Discontinued 100 mg PO TWICE DAILY NEEDED as needed for Constipation 60 February 04, 2016 8:45am October 14, 2022 4:00pm ibuprofen 800 mg oral tablet (19 sources) Nonsteroidal Anti-inflammatory Drug Start: 03-16-2016 End: 10-27-2024 take 1 tablet by mouth every eight hours as needed ibuprofen (MOTRIN) 800 mg tablet Take 1 tablet by mouth every 8 hours as needed for Pain. Start taking 24 hours before surgery. 30 tablet 0 03/16/2016 10/27/2024 Discontinued Start: 02-04-2016 End: 10-27-2024 take 1 tablet by mouth every six hours as needed for pain Ibuprofen 600 MG tablet Active 600 mg PO EVERY 6 HOURS NEEDED as needed for Pain 60 February 04, 2016 8:45am Comment on above: Take 600 mg by mouth every 6 hours as needed. Take 1 tablet by carlos th every 8 hours as needed for Pain. Start taking 24 hours before surgery. incentive spirometer (9 sources) Start: 11-08-2022 End: 02-28-2023 incentive spirometer Discontinued 0 .Route .MEDSUPPLY 1 0 November 08, 2022 1:00am February 27, 2023 12:00am February 28, 2023 12:04am Bronchitis due to COVID-19 virus COVID-19 Bronchitis, not specified as acute or chronic for bronchopulmonary hygiene Do 10 repetitions every 2-4 hours until lungs are clear. Start: 11-08-2022 End: 02-28-2023 incentive spirometer Discont inued 0 .Route .MEDSUPPLY 1 November 08, 2022 1:00am February 27, 2023 12:00am February 28, 2023 12:04am Do 10 repetitions every 2-4 hours until lungs are clear. Start: 11-08-2022 incentive spir ometer Active 0 .Route .MEDSUPPLY 1 November 08, 2022 1:00am Do 10 repetitions every 2-4 hours until lungs are clear. Start: 11-08-2022 incentive spir ometer Active 0 .Route .MEDSUPPLY 1 November 08, 2022 12:00am Do 10 repetitions every 2-4 hours until lungs are clear. Ipratropium [place] 21 mcg ( 0.03 %) spray,non-aerosol (6 sources) Start: 01-11-2023 End: 05-23-2023 Ipratropium [place] 21 mcg (0.03 %) spray,non-aerosol Discontinued 2 NMA INTRANASAL 2 to 3 times per day 29 04January 11, 2023 12:00am May 23, 2023 10:18am administer into each nostril Start: 01-11-2023 End: 05-23-2023 Ipratropium [place] 21 mcg ( 0.03 %) spray,non-aerosol Discontinued 2 NMA INTRANASAL 2 to 3 times per day January 11, 2023 12:00am May 23, 2023 10:18am administer into each nostril MULTIVITAMIN ORAL (4 sources) End: 10-27-2024 M[address]AMIN ORAL Take by [facility] once daily. 10/27/2024 Discontinued MULTIVITAMIN ORA L Take by mouth once daily. Active MULTIVITAMIN ORA L Take by mouth once daily. 0 Active Comment on above: Take by mouth once d aily. oxymetazoline hydrochloride 0.5 mg/ml nasal spray (9 sources) Start: 11-08-2022 End: 11-11-2022 Oxymetazoline (Afrin (Oxymetazoline)) 0.05 % mist Discontinued 2 NMA INTRANASAL Q12H as needed for nasal congestion 15 3 0 November 08, 2022 1:00am November 10, 2022 1:00am November 11, 2022 1:05am Sinusitis Chronic sinusitis, unspecified Problems Active Problems Problem Classification Problem Date Documented Date Episodic/Chronic Acute bronchitis (2 sources) Acute bronchitis, unspecified; Translations: [Acute bronchitis] 01-06-2023 Episodic Administrative/social admission (4 sources) Persons encountering health services in other specified circumstances; Translations: [Other reasons for seeking consultation] Episodic Anxiety disorders (5 sources) Mixed anxiety and depressive disorder; Translations: [Anxiety disorder, unspecified] 04-22-2025 Chronic Essential hypertension (8 sources) Essential hypertension; Translations: [Essential (primary) hypertension] Onset: 04-22-2025 04-22-2025 Chronic Genitourinary symptoms and ill-defined conditions (10 sources) History of urinary tract infection; Translations: [Personal history of urinary (tract) infections] 10-14-2022 Episodic Immunizations and screening for infectious disease (1 source) Exposure to Bordetella pertussis; Translations: [Contact with and (suspected) exposure to other bacterial communicable diseases] 10-27-2024 Episodic Menstrual disorders (12 sources) Menorrhagia; Translations: [Excessive and frequent menstruation with regular cycle] 03-22-2024 Chronic Comment on above: US, considering reyes na IUD vs orilissa Nonmalignant breast conditions (1 source) Unspecified lump in the right breast, upper outer quadrant; Translations: [Unspecified lump in the right breast, upper outer quadrant] Onset: 05-20-2025 Episodic Nutritional deficiencies (7 sources) Vitamin D deficiency; Translations: [Vitamin D deficiency, unspecified] Onset: 04-22-2025 04-22-2025 Chronic Other connective tissue disease (6 sources) H/O: back problem; Translations: [Personal history of other diseases of the musculoskeletal system and connective tissue] 10-14-2022 Episodic Other connective tissue disease (5 sources) Suspected respiratory disease; Translations: [Other symptoms and signs involving the nervous system] 04-22-2025 Episodic Other ear and sense organ disorders (2 sources) Otalgia, bilateral; Translations: [Otalgia, unspecified] 01-06-2023 Episodic Other female genital disorders (8 sources) Enlarged uterus; Translations: [Hypertrophy of uterus] 01-10-2023 Episodic Comment on above: ultrasound Other female genital disorders (2 sources) Hypertrophy of uterus; Translations: [Hypertrophy of uterus] 01-10-2023 Episodic Other lower respiratory disease (1 source) Cough; Translations: [Acute cough] Episodic Other lower respiratory disease (4 sources) H/O: pneumonia; Translations: [Personal history of pneumonia (recurrent)] 11-08-2022 Episodic Other lower respiratory disease (13 sources) Cough; Translations: [[id number] syndrome manifesting as chronic cough] Episodic Other lower respiratory disease (3 sources) Personal history of pneumonia (recurrent); Translations: [Personal history of pneumonia (recurrent)] Episodic Other lower respiratory disease (2 sources) Chronic cough; Translations: [Chronic cough] 01-11-2023 Episodic Other lower respiratory disease (1 source) Lower respiratory tract infection; Translations: [Unspecified acute lower respiratory infection] 07-03-2023 Episodic Other nervous system disorders (10 sources) H/O: migraine; Translations: [Personal history of other diseases of the nervous system and sense organs] 10-14-2022 Episodic Comment on above: no aura Other screening for suspected conditions (not mental disorders or infectious disease) (20 sources) Encounter for screening for malignant neoplasm of cervix; Translations: [Screening for malignant neoplasms of cervix] Onset: 04-22-2025 Episodic Other upper respiratory infections (3 sources) Sinusitis; Translations: [Chronic sinusitis, unspecified] Chronic Other upper respiratory infections (6 sources) Viral upper respiratory tract infection; Translations: [Acute upper respiratory infection, unspecified] 05-08-2024 Episodic Residual codes; unclassified (1 source) Hypersomnia, unspecified; Translations: [Hypersomnia, unspecified] Onset: 05-20-2025 Chronic Residual codes; unclassified (4 sources) Immunization not carried out because of patient refusal; Translations: [Vaccination not carried out because of patient refusal] Episodic Residual codes; unclassified (1 source) Medication refused; Translations: [Immunization not carried out because of patient refusal] 04-22-2025 Episodic Viral infection (6 sources) COVID-19; Translations: [Bronchitis due to COVID-19 virus] Episodic Past or Other Problems Problem Classification Problem Date Documented Date Episodic/Chronic Complications of surgical procedures or medical care (3 sources) Postoperative seroma; Translations: [Postoperative seroma] Onset: 01-27-2012 Resolved: 03-02-2012 03-02-2012 Episodic Hemorrhage during ; abruptio placenta; placenta previa (3 sources) Threatened miscarriage; Translations: [Threatened ] Onset: 06-30-2011 Resolved: 01-14-2012 01-14-2012 Episodic Hypertension complicating ; childbirth and the puerperium (3 sources) -induced hypertension; Translations: [Gestational [-induced] hypertension without significant proteinuria, unspecified trimester] Onset: 01-07-2012 Resolved: 03-02-2012 03-02-2012 Episodic Other complications of (3 sources) Maternal obesity complicating , childbirth and the puerperium, antepartum; Translations: [Obesity complicating , unspecified trimester] Onset: 06-17-2015 Resolved: 02-16-2016 02-16-2016 Chronic Other complications of (3 sources) High risk ; Translations: [Supervision of high risk , unspecified, unspecified trimester] Onset: 06-30-2011 Resolved: 01-27-2012 01-27-2012 Episodic Other and delivery including normal (3 sources) Normal ; Translations: [Encounter for supervision of normal , unspecified, unspecified trimester] Onset: 10-28-2015 Resolved: 02-16-2016 10-26-2021 Episodic Unclassified (4 sources) H/O: back problem; Translations: [History of back problems] 10-14-2022 Results Test Name Value Interpretation Reference Range Facility Surgical pathology reportOrd ered By: Edie Fine on 05-22-2025 Surgical pathology study [facility] Surgery Visit Reporton 05-20 Surgery Visit Report [facility] [address] [place] [address]. [address] [place] [address] OFFICE VISIT Date of Service: 05/20/25 MR#: [id number] Acct: [id number] Name: JORDIN TOBAR Rep #: [id number] : 1985 Provider: Dr. Adore kmi MD Age/Sex: 39/F Location: [facility] Status: Signed Intake Vital Signs 04/22/25 08:44 05/20/25 14:01 Height 5 ft 2 in 5 ft 2 in Weight: 264 lb 8 oz BMI 48.4 BP 113/67 Blood Pressure Location Rt brachial Position Sitting Respiration 18 Pulse 72 Pulse Source Monitor Temp 97.5 F L Temp Source Temporal Pulse Oximetry (%) 99 Oxygen Delivery Method room air Intake Visit Reasons: BIRADS 4 Chief Complaint: BIRADS 4 Is patient in pain?: No Allergies No Known Allergies Allergy (Verified 05/20/25 14:01) Medications ???Medication ???Instructions ???Recorded ???Confirmed ???Type ibuprofen 600 mg tablet 600 mg PO Q6H PRN PRN Pain #60 04/1505/20/25 Rx TABLETS albuterol sulfate 90 mcg/actuation 2 puff inhalation Q6H PRN PRN SO B 10/08/22 05/20/25 History aerosol inhaler acetaminophen 500 mg tablet 500 mg PO Q6H PRN 10/14/22 5 History (Tylenol Extra Strength) albuterol sulfate 2.5 mg/3 mL 2.5 mg (3 mL) inhalation Q4H PRN 1 12/15/21 05/20/25 Rx (0.083 %) solution for nebulization shortness of breath or wheezing #90 mL cholecalciferol (vitamin D3) 250 250 mcg PO .EVERY OTHER DAY 05/20/25 History mcg (10,000 unit) capsule zinc gluconate 30 mg tablet 30 mg PO DAILY 10/14/22 05/20/25 H istory fluticasone propionate 50 2 spray intranasal DAILY #16 grams 05/08/24 05/20/25 Rx mcg/actuation nasal spray,suspension (Allergy Relief (fluticasone)) escitalopram oxalate 5 mg tablet 5 mg PO QDAY #30 tabs 04/22/25 Rx (Lexapro) lisinopril 2.5 mg tablet 2.5 mg PO QDAY #30 tabs 04/22/25 0 05/20/25 Rx PFSH Medical History (Updated 05/20/25 @ 14:01 by Gayle Olivera LPN) Abnormal ultrasound of breast Abnormal mammogram of right breast Hx of migraines Hx: UTI (urinary tract infection) History of back problems COVID Surgical History History of tonsillectomy History of cholecystectomy Hx of section Family History Father Arthritis Diabetes Hypertension Social History adopted: No household members: family housing: house number of children: 2 current occupational status: employed current occupation: [employer] Smoking Status: Never smoker Electronic Cigarette Use: not used alcohol intake: current alcohol intake frequency: holidays/special occasions only substance use type: does not use what type of physical activity do you participate in: none and walking frequency: 5-6 times per week seatbelt use: always do you feel safe at home: Yes 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 Patient denies any trauma to her breast or any breast pain or any masses on exam. Patient's ultrasound did show 1.6 x 1.3 x 1.1 cm well-defined hypoechoic nodule 8:00 9 cm from the nipple with some posterior acoustical shadowing this may be fibroadenoma recommended biopsy given a BI-RADS 4. Age of menses 10, age of of first child 26, no immediate family history of breast cancer???great maternal grandmother and great maternal aunt, no previous breast biopsies no nipple discharge ROS General General: Yes weight change and fatigue; No appetite, colon cancer, breast cancer or weakness HEENT HEENT: No difficulty swallowing, eye injury, eye surgery, swollen glands or hoarseness Endo Endocrine: No thyroid disease, diabetes mellitus, thyroid cancer, Hair loss, heat intolerance or cold intolerance Skin Skin: No rash or changing moles Breast Breast: Yes abnormal mammogram and abnormal US; No left breast lump, right breast lump, nipple discharge, breast pain or breast enlargement Musc Musculoskeletal: No back problems, arthritis, rheumatoid arthritis, gout or joint pain Cardio Cardiovascular: No murmur, pacemaker, heart disease, atrial fibrillation, high blood pressure, heart attack, heart stent, palpitations, shortness of breath with exertion or chest pain Psych Psychiatric: Yes depression and anxiety; No hearing voices Resp Respiratory: Yes shortness of breath, No sleep apnea, Yes cough, No COPD, No asthma, No emphysema and No wheezing Gastro Gastrointestinal: No abdominal pain, No nausea or vomiting, No diarrhea, No constipation, No blood in stool, No acid reflux, No hemorrhoids, No (more content not included)... Normal [facility] Breast Limited Unilateralon 05-14-2025 Breast Limited Unilateral [facility] Imaging Services [address] [place], [place] [id number] Breast Limited Unilateral MR#: [id number] Acct: [id number] Name: JORDIN TOBAR Rep #: [id number] : 1985 F 39 From: Regan razo MD PCP: Dr. Sana Garcia MD Status: REG CLI Study: Breast Limited Unilateral Date of Exam: Exam# [id number] Ordering Dr: Sana Garcia MD PROCEDURE: BREAST LIMITED UNILATERAL 05/14/2025 REASON FOR EXAM: F, Age 39 y/o , ABNORMAL MAMMOGRAM COMPARISON: Prior mammogram dated May 06, 2025.. TECHNIQUE: BREAST LIMITED UNILATERAL FINDINGS: The mammographic abnormality corresponds to a 1.7 cm 1.6 cm 1.1 cm well-defined hypoechoic nodule at the 8 o'clock position of the breast at 9 cm from the nipple. There is evidence of some posterior acoustical shadowing. This may represent a fibroadenoma although targeted biopsy recommended. US/Breast Limited Unilateral IMPRESSION: The mammographic abnormality corresponds to a 1.7 cm 1.6 cm 1.1 cm well-defined hypoechoic solid nodule with some posterior acoustical shadowing as described. This most likely represents a fibroadenoma. Biopsy recommended. BI-RADS 4: SUSPICIOUS ABNORMALITY. RECOMMENDATION: Biopsy Recommended Reading Location: [id number] CC: Dr. Sana Garcia MD Scrap Iron Loader: Signed Normal [facility] Breast imaging reportOrdered By: Regan Han on 05-06-2025 Study report [facility] Imaging Services [address] [place] [address] SCRN MAMM (CAD)W/IKE BILAT MR#: [id number] Acct: [id number] Name: JORDIN TOBAR Rep #: [id number] : 1985 F 39 From: Scott Han MD PCP: Dr. Sana Garcia MD Status: [facility] Study:SCRN MAMM (CAD)W/IKE BILAT Date of Exa m: 05/06/25 Exam# [id number] Ordering Dr: Sana Garcia MD EXAM: SCRN MAMM (CAD)W/IKE BILAT DATE: 05/06/2025 CLINICAL HISTORY: F, Age 39 y/o , SCREENING Grandmother with breast cancer. Aunt with breast cancer. TECHNIQUE: SCRN MAMM (CAD)W/IKE BILAT COMPARISON: Baseline examination. FINDINGS: TISSUE DENSITY: There are scattered areas of fibroglandular density. Bilateral Breast Mammographic Findings: There is a 16.2 mm by 16.5 mm well-defined nodule in the upper lateral aspect ofthe right breast. Correlation with ultrasound recommended for further evaluation. BI/SCRN MAMM (CAD)W/IKE BILAT IMPRESSION: 16.2 mm x 16.5 mm well-defined nodule in the upper lateral aspect of the right breast as described. Targeted sonographic correlation recommended. OVERALL FINAL ASSESSMENT BI-RADS 0: INCOMPLETE - NEED ADDITIONAL IMAGING EVALUATION. RECOMMENDATION: Ultrasound Recommended A letter with findings and recommendations will be mailed to the patient. Reading Location: [facility] CC: Dr. Sana Garcia MD ~ Scrap Iron Loader: Signed [facility] SCRN MAMM (CAD)W/IKE BILATo n 05-06-2025 SCRN MAMM (CAD)W/IKE BILAT [facility] Imaging Services [address] [place] [address] SCRN MAMM (CAD)W/IKE BILAT MR#: [id number] Acct: [id number] Name: JORDIN TOBAR Rep #: [id number] : 1985 F 39 From: Regan razo MD PCP: Dr. Sana Garcia MD Status: [facility] Study: SCRN MAMM (CAD)W/IKE BILAT Date of Exam: 05/24 Exam# [id number] Ordering Dr: Sana Garcia MD EXAM: SCRN MAMM (CAD)W/IKE BILAT DATE: 05/06/2025 CLINICAL HISTORY: F, Age 39 y/o , SCREENING Grandmother with breast cancer. Aunt with breast cancer. TECHNIQUE: SCRN MAMM (CAD)W/IKE BILAT COMPARISON: Baseline examination. FINDINGS: TISSUE DENSITY: There are scattered areas of fibroglandular density. Bilateral Breast Mammographic Findings: There is a 16.2 mm by 16.5 mm well-defined nodule in the upper lateral aspect of the right breast. Correlation with ultrasound recommended for further evaluation. BI/SCRN MAMM (CAD)W/IKE BILAT IMPRESSION: 16.2 mm x 16.5 mm well-defined nodule in the upper lateral aspect of the right breast as described. Targeted sonographic correlation recommended. OVERALL FINAL ASSESSMENT BI-RADS 0: INCOMPLETE - NEED ADDITIONAL IMAGING EVALUATION. RECOMMENDATION: Ultrasound Recommended A letter with findings and recommendations will be mailed to the patient. Reading Location: [facility] CC: Dr. Sana Garcia MD Scrap Iron Loader: Signed Normal [facility] Absolute lymphocyte countOrd ered By: Sana Garcia on 04-22-2025 Lymphocytes Auto (Unsp spec) [#/Vol] 2.17 10*3/uL 0.83-4.51 [facility] Absolute neutrophil countOrd ered By: Sana Garcia on 04-22-2025 Neutrophils (Bld) [#/Vol] 3.5 10*3/uL 2.0-7.7 [facility] Anion gap in Serum or Plasma Ordered By: Sana Garcia on 04-22-2025 Anion gap [Moles/Vol] 10 mmol/L 5-15 [facility] Automated lymphocyte count a s percentage of total leukocytesOrdered By: Sana Garcia on 04-22-2025 Lymphocytes/100 WBC Auto (Unsp spec) 33.0 % 19-41 [facility] BUN/creatinine ratioOrdered By: Sana Garcia on 04-22-2025 Urea nitrogen/Creatinine [Mass ratio] 20.7 mg/mg High 10-20 [facility] Basophil percentageOrdered B y: Sana Garcia on 04-22-2025 Basophils/100 WBC (Bld) 1.7 % High 0-[address] [facility] Bilirubin, totalOrdered By: Sana Garcia on 04-22-2025 Bilirubin [Mass/Vol] 0.53 mg/dL 0.00-1.30 [facility] CBC W/Diff, Automatedon 04-01 Absolute Lymph 2.17 X10 3/uL Normal 0.83-4.51 [facility] Comment on above: Performed By: #### L 500.4100, L500.4050, L100.0100, L506.1001, L501.9520 #### [facility] Laboratory [address] [place], [address] Absolute Neut 3.5 X10 3/uL Normal 2.0-7.7 [facility] Comment on above: Performed By: #### L 500.4100, L500.4050, L100.0100, L506.1001, L501.9520 #### [facility] [address] [place], [address] Basophils/100 WBC (Bld) 1.7 % High 0-[address] [facility] Comment on above: Performed By: #### L 500.4100, L500.4050, L100.0100, L506.1001, L501.9520 #### [facility] [address] [place], [address] Eosinophils/100 WBC (Bld) 2.6 % Normal 0-5 [facility] Comment on above: Performed By: #### L 500.4100, L500.4050, L100.0100, L506.1001, L501.9520 #### [facility] [address] [place], [address] Erythrocyte distribution width (RBC) [Ratio] 13.1 % Normal 11.6-14.6 [facility] Comment on above: Performed By: #### L 500.4100, L500.4050, L100.0100, L506.1001, L501.9520 #### [facility] [address] [place], [address] Hematocrit (Bld) [Volume fraction] 37.5 % Normal 37-47 [facility] Comment on above: Performed By: #### L 500.4100, L500.4050, L100.0100, L506.1001, L501.9520 #### [facility] [address] [place], [address] Hemoglobin (Bld) [Mass/Vol] 11.8 g/dL Low 12.0-15.0 [facility] Comment on above: Performed By: #### L 500.4100, L500.4050, L100.0100, L506.1001, L501.9520 #### [facility] [address] [place], [address] IG% 0.500 Normal 0.0-0.9 [facility] Comment on above: Result Comment: IG% - Immature Granulocytes (promyelocytes, myelocytes and metamyelocytes) > 1% indicates that a LEFT SHIFT is Present. Performed By: #### L 500.4100, L500.4050, L100.0100, L506.1001, L501.9520 #### [facility] [address] [place], [address] Lymphocytes/100 WBC (Bld) 33.0 % Normal 19-41 [facility] Comment on above: Performed By: #### L 500.4100, L500.4050, L100.0100, L506.1001, L501.9520 #### [facility] [address] [place], [address] MCH (RBC) [Entitic mass] 26.0 pg Low 27.0-32.0 [facility] Comment on above: Performed By: #### L 500.4100, L500.4050, L100.0100, L506.1001, L501.9520 #### [facility] [address] [place], [address] MCHC (RBC) [Mass/Vol] 31.5 g/dL Low 32-36 [facility] Comment on above: Performed By: #### L 500.4100, L500.4050, L100.0100, L506.1001, L501.9520 #### [facility] [address] [place], [address] MCV (RBC) [Entitic vol] 82.6 fL Normal 81-99 [facility] Comment on above: Performed By: #### L 500.4100, L500.4050, L100.0100, L506.1001, L501.9520 #### [facility] [address] [place], [address] Monocytes/100 WBC (Bld) 8.8 % Normal 0-[address] [facility] Comment on above: Performed By: #### L 500.4100, L500.4050, L100.0100, L506.1001, L501.9520 #### [facility] [address] [place], [address] Neutrophils/100 WBC (Bld) 53.4 % Normal 47-70 [facility] Comment on above: Performed By: #### L 500.4100, L500.4050, L100.0100, L506.1001, L501.9520 #### [facility] [address] [place], [address] Nucleated RBC (Bld) [#/Vol] 0 10*3/uL Normal 0-5 [facility] Comment on above: Performed By: #### L 500.4100, L500.4050, L100.0100, L506.1001, L501.9520 #### [facility] [address] [place], [address] Platelet mean volume (Bld) [Entitic vol] 8.7 fL Normal 6.2-12.0 [facility] Comment on above: Performed By: #### L 500.4100, L500.4050, L100.0100, L506.1001, L501.9520 #### [facility] [address] [place], [address] Platelets (Bld) [#/Vol] 491 10*3/uL High 150-450 [facility] Comment on above: Performed By: #### L 500.4100, L500.4050, L100.0100, L506.1001, L501.9520 #### [facility] [address] [place], [address] RBC (Bld) [#/Vol] 4.54 10*6/uL Normal 4.2-5.4 [facility] Comment on above: Performed By: #### L 500.4100, L500.4050, L100.0100, L506.1001, L501.9520 #### [facility] [address] [place], [address] RDW SD 39.0 fl Normal 35.1-43.9 [facility] Comment on above: Performed By: #### L 500.4100, L500.4050, L100.0100, L506.1001, L501.9520 #### [facility] [address] [place], [address] WBC (Bld) [#/Vol] 6.6 10*3/uL Normal 4.4-11.0 [facility] Comment on above: Performed By: #### L 500.4100, L500.4050, L100.0100, L506.1001, L501.9520 #### [facility] [address] [place], [address] Calculated very low density lipoprotein (VLDL) cholesterol measurementOrdered By: Sana Laie on 04-22-2025 Calculated very low density lipoprotein (VLDL) cholesterol measurement 20 mg/dL 5-40 [facility] Carbon dioxide, total [Moles /volume] in Central venous bloodOrdered By: Sana Laie on 04-22-2025 CO2 [Moles/Vol] 23.0 mmol/L 21.0-32.0 [facility] Chloride assayOrdered By: Al ycia Laie on 04-22-2025 Chloride [Moles/Vol] 107 mmol/L 98-108 [facility] Comprehensive Metabolic Prof ilon 04-22-2025 Albumin [Mass/Vol] 4.0 g/dL Normal 3.5-5.0 [facility] Comment on above: Performed By: #### L 500.4100, L500.4050, L100.0100, L506.1001, L501.9520 #### [facility] [address] [place], [address] Albumin/Globulin [Mass ratio] 1.4 {ratio} Normal 0.9-2.4 [facility] Comment on above: Performed By: #### L 500.4100, L500.4050, L100.0100, L506.1001, L501.9520 #### [facility] [address] [place], [address] ALK PHOS 50 U/L Normal 35-104 [facility] Comment on above: Performed By: #### L 500.4100, L500.4050, L100.0100, L506.1001, L501.9520 #### [facility] [address] [place], [address] ALT [Catalytic activity/Vol] 15 U/L Normal <=34 [facility] Comment on above: Performed By: #### L 500.4100, L500.4050, L100.0100, L506.1001, L501.9520 #### [facility] [address] [place], [address] AST [Catalytic activity/Vol] 13 U/L Normal <=31 [facility] Comment on above: Performed By: #### L 500.4100, L500.4050, L100.0100, L506.1001, L501.9520 #### [facility] [address] [place], [address] Bilirubin [Mass/Vol] 0.53 mg/dL Normal 0.00-1.30 [facility] Comment on above: Performed By: #### L 500.4100, L500.4050, L100.0100, L506.1001, L501.9520 #### [facility] [address] [place], [address] BUN/CRE 20.7 RATIO High 10-20 [facility] Comment on above: Performed By: #### L 500.4100, L500.4050, L100.0100, L506.1001, L501.9520 #### [facility] [address] [place], [address] Calcium [Mass/Vol] 8.8 mg/dL Normal 7.6-11.0 [facility] Comment on above: Performed By: #### L 500.4100, L500.4050, L100.0100, L506.1001, L501.9520 #### [facility] [address] [place], [address] Chloride [Moles/Vol] 107 mmol/L Normal 98-108 [facility] Comment on above: Performed By: #### L 500.4100, L500.4050, L100.0100, L506.1001, L501.9520 #### [facility] [address] [place], [address] CO2 [Moles/Vol] 23.0 mmol/L Normal 21.0-32.0 [facility] Comment on above: Performed By: #### L 500.4100, L500.4050, L100.0100, L506.1001, L501.9520 #### [facility] [address] [place], [address] Creatinine [Mass/Vol] 0.79 mg/dL Normal 0.70-1.20 [facility] Comment on above: Performed By: #### L 500.4100, L500.4050, L100.0100, L506.1001, L501.9520 #### [facility] [address] [place], [address] GAP 10 Normal 5-15 [facility] Comment on above: Performed By: #### L 500.4100, L500.4050, L100.0100, L506.1001, L501.9520 #### [facility] [address] [place], [address] GFR/1.73 sq M.predicted among non-blacks MDRD (S/P/Bld) [Vol rate/Area] 96 mL/min/{1.73_m2} Normal >60 [facility] Comment on above: Result Comment: mL/m in/1.73m2 CKD-EPI Creatinine Equation (2020) Performed By: #### L 500.4100, L500.4050, L100.0100, L506.1001, L501.9520 #### [facility] [address] [place], [address] Globulin (S) [Mass/Vol] 2.9 g/dL Normal 2.2-4.2 [facility] Comment on above: Performed By: #### L 500.4100, L500.4050, L100.0100, L506.1001, L501.9520 #### [facility] [address] [place], [address] Glucose [Mass/Vol] 100 mg/dL High 70-99 [facility] Comment on above: Performed By: #### L 500.4100, L500.4050, L100.0100, L506.1001, L501.9520 #### [facility] [address] [place], [address] Potassium [Moles/Vol] 4.2 mmol/L Normal 3.3-5.1 [facility] Comment on above: Performed By: #### L 500.4100, L500.4050, L100.0100, L506.1001, L501.9520 #### [facility] [address] [place], [address] Sodium [Moles/Vol] 141 mmol/L Normal 133-145 [facility] Comment on above: Performed By: #### L 500.4100, L500.4050, L100.0100, L506.1001, L501.9520 #### [facility] [address] [place], [address] T PROT 6.9 g/dL Normal 5.9-8.4 [facility] Comment on above: Performed By: #### L 500.4100, L500.4050, L100.0100, L506.1001, L501.9520 #### [facility] [address] [place], [address] Urea nitrogen [Mass/Vol] 16 mg/dL Normal 4-19 [facility] Comment on above: Performed By: #### L 500.4100, L500.4050, L100.0100, L506.1001, L501.9520 #### [facility] [address] [place], [address] Eosinophil percentageOrdered By: Sana Garcia on 04-22-2025 Eosinophils/100 WBC (Bld) 2.6 % 0-5 [facility] Erythrocyte distribution wid th ratioOrdered By: Sanameir Garcia on 04-22-2025 Erythrocyte distribution width (RBC) [Ratio] 13.1 % 11.6-14.6 [facility] Erythrocyte distribution wid th standard deviationOrdered By: Sanabrandon Garcia on 04-22-2025 Erythrocyte distribution width (RBC) [Ratio] 39.0 fl 35.1-43.9 [facility] Glomerular filtration rate ( GFR) estimation/1.73 sq m using serum, plasma, or whole bOrdered By: Sana Garcia on 04-22-2025 GFR/1.73 sq M.predicted among non-blacks MDRD (S/P/Bld) [Vol rate/Area] 96 mL/min/{1.73_m2} >60 [facility] Comment on above: mL/min/1.73m2 CKD-EP I Creatinine Equation (2020) Hematocrit Auto (Bld) [Volum e fraction]Ordered By: Sana Garcia on 04-22-2025 Hematocrit (Bld) [Volume fraction] 37.5 % 37-47 [facility] Hemoglobin measurementOrdere d By: Sana Garcia on 04-22-2025 Hemoglobin (Bld) [Mass/Vol] 11.8 g/dL Low 12.0-15.0 [facility] Immature granulocytes/100 WB C Auto (Bld)Ordered By: Sana Garcia on 04-22-2025 Immature granulocytes/100 WBC (Bld) 0.500 % 0.0-0.9 [facility] Comment on above: IG% - Immature Granu locytes (promyelocytes, myelocytes and metamyelocytes) > 1% indicates that a LEFT SHIFT is Present. LDL calc ser/plasOrdered By: Sana Garcia on 04-22-2025 Cholesterol in LDL [Mass/Vol] 76 mg/dL [facility] Comment on above: Kyehvlrdqd=874-404 m g/dL & Higher Aeip=776 mg/dL or greater Laboratory - Chemistry and C hemistry - challengeOrdered By: Sana Garcia on 04-22-2025 AST [Catalytic activity/Vol] 13 U/L <32 [facility] Lipid Profileon 04-22-2025 CHOL:HDL 3.50 Normal [facility] Comment on above: Performed By: #### L 500.4100, L500.4050, L100.0100, L506.1001, L501.9520 #### [facility] [address] [place], [address] Cholesterol [Mass/Vol] 134 mg/dL Normal <=200 [facility] Comment on above: Result Comment: Chol esterol level, Desirable <200 mg/dL Borderline high cholesterol 200-239 mg/dL High cholesterol >=240 mg/dL Recommendations of the NCEP Adult Treatment Panel for the following risk-cutoff thresholds for the [place] population. Performed By: #### L 500.4100, L500.4050, L100.0100, L506.1001, L501.9520 #### [facility] [address] [place], [address] Cholesterol in HDL [Mass/Vol] 38 mg/dL Low [facility] Comment on above: Result Comment: Mee onal Cholesterol Education Program (NCEP) guidelines: <40 mg/dL: Low HDL-cholesterol (major risk factor for CHD) >= 60 mg/dL: High HDL-cholesterol (negative risk factor for CHD) HDL-cholesterol is affected by a number of factors, e.g. smoking, exercise, hormones, sex and age. Performed By: #### L 500.4100, L500.4050, L100.0100, L506.1001, L501.9520 #### [facility] [address] [place], [address] Cholesterol in LDL [Mass/Vol] 76 mg/dL Normal [facility] Comment on above: Result Comment: Bord sbswxw=754-578 mg/dL Higher Hyos=219 mg/dL or greater Performed By: #### L 500.4100, L500.4050, L100.0100, L506.1001, L501.9520 #### [facility] [address] [place], [address] Cholesterol in VLDL [Mass/Vol] 20 mg/dL Normal 5-40 [facility] Comment on above: Performed By: #### L 500.4100, L500.4050, L100.0100, L506.1001, L501.9520 #### [facility] [address] [place], [address] Triglyceride [Mass/Vol] 100 mg/dL Normal [facility] Comment on above: Result Comment: The drugs N-Acetylcysteine and Metamizole may falsely depress this assay. Normal range: <150 mg/dL Borderline High: 150-199 mg/dL High: 200-499 mg/dL Very High: >500 mg/dL Performed By: #### L 500.4100, L500.4050, L100.0100, L506.1001, L501.9520 #### [facility] [address] [place], [address] MCV (mean corpuscular volume ) determinationOrdered By: Sana Jose on 04-22-2025 MCV (RBC) [Entitic vol] 82.6 fL 81-99 [facility] Mean corpuscular hemoglobin (MCH) determinationOrdered By: Sana Jose on 04-22-2025 MCH (RBC) [Entitic mass] 26.0 pg Low 27.0-32.0 [facility] Mean corpuscular hemoglobin concentration (MCHC) determinationOrdered By: Sana Jose on 04-22-2025 MCHC (RBC) [Mass/Vol] 31.5 g/dL Low 32-36 [facility] Mean platelet volume determi nationOrdered By: Sana Garcia on 04-22-2025 Platelet mean volume (Bld) [Entitic vol] 8.7 fL 6.2-12.0 [facility] Monocyte percentageOrdered B y: Sana Garcia on 04-22-2025 Monocytes/100 WBC (Bld) 8.8 % 0-[address] [facility] Neutrophil percentageOrdered By: Sana Garcia on 04-22-2025 Neutrophils/100 WBC (Bld) 53.4 % 47-70 [facility] Nucleated red blood cell per centageOrdered By: Sana Garcia on 04-22-2025 Nucleated RBC/100 WBC (Bld) [Ratio] 0 % 0-5 [facility] Platelet countOrdered By: Juan F Garcia on 04-22-2025 Platelets (Bld) [#/Vol] 491 10*3/uL High 150-450 [facility] Potassium measurement (mass/ volume)Ordered By: Sana Garcia on 04-22-2025 Potassium (Unsp spec) [Mass/Vol] 4.2 mmol/L 3.3-5.1 [facility] RBC Auto (Bld) [#/Vol]Ordere d By: Sana Garcia on 04-22-2025 RBC (Bld) [#/Vol] 4.54 10*6/uL 4.2-5.4 [facility] Screening total cholesterol/ high density lipoprotein (HDL) cholesterol ratioOrdered By: Sana Garcia on 04-22-2025 Cholesterol.total/Cholest sujit in HDL [Mass ratio] 3.50 {ratio} [facility] Serum creatinine measurement (mass/volume)Ordered By: Sana Garcia on 04-22-2025 Creatinine [Mass/Vol] 0.79 mg/dL 0.70-1.20 [facility] Serum globulin measurementOr dered By: Sana Garcia on 04-22-2025 Globulin (S) [Mass/Vol] 2.9 g/dL 2.2-4.[address] [facility] Serum glucose measurement (m ass/volume)Ordered By: Sana Garcia on 04-22-2025 Glucose [Mass/Vol] 100 mg/dL High 70-99 [facility] Serum or plasma alanine aprekh otransferase (ALT) measurementOrdered By: Sana Garcia on 04-22-2025 ALT [Catalytic activity/Vol] 15 U/L <35 [facility] Serum or plasma albumin malik urement (mass/volume)Ordered By: Sana Garcia on 04-22-2025 Albumin [Mass/Vol] 4.0 g/dL 3.5-5.0 [facility] Serum or plasma albumin/glob ulin mass ratioOrdered By: Sana Garcia on 04-22-2025 Albumin/Globulin [Mass ratio] 1.4 {ratio} 0.9-2.4 [facility] Serum or plasma alkaline marita sphatase measurementOrdered By: Sana Garcia on 04-22-2025 ALP [Catalytic activity/Vol] 50 U/L 35-104 [facility] Serum or plasma calcium malik urement (mass/volume)Ordered By: Sana Garcia on 04-22-2025 Calcium [Mass/Vol] 8.8 mg/dL 7.6-11.0 [facility] Serum or plasma cholesterol in HDL measurement (mass/volume)Ordered By: Sana Garcia on 04-22-2025 Cholesterol in HDL [Mass/Vol] 38 mg/dL Low >40 [facility] Comment on above: National Cholesterol Education Program (NCEP) guidelines:<40 mg/dL: Low HDL-cholesterol (major risk factor for CHD)>= 60 mg/dL: High HDL-cholesterol (negative risk factor for CHD)HDL-cholesterol is affected by a number of factors, e.g. smoking, exercise, hormones, sex and age. Serum or plasma cholesterol measurement (mass/volume)Ordered By: Sana Garcia on 04-22-2025 Cholesterol [Mass/Vol] 134 mg/dL <201 [facility] Comment on above: Cholesterol level, D esirable <200 mg/dLBorderline high cholesterol 200-239 mg/dLHigh cholesterol >=240 mg/dLRecommendations of the NCEP Adult Treatment Panel for the following risk-cutoff thresholds for the [place] population. Serum or plasma urea nitroge n measurement (mass/volume)Ordered By: Sana Garcia on 04-22-2025 Urea nitrogen [Mass/Vol] 16 mg/dL 4-19 [facility] Sodium levelOrdered By: Elkin Garcia on 04-22-2025 Sodium [Moles/Vol] 141 mmol/L 133-145 [facility] TSH DL <= 0.005 mIU/L QnOrde red By: Sana Garcia on 04-22-2025 TSH Qn 1.300 uIU/mL 0.300-4.200 [facility] Thyroid Stim Hormone (TSH)on 04-22-2025 TSH 1.300 uIU/mL Normal 0.300-4.200 [facility] Comment on above: Performed By: #### L 500.4100, L500.4050, L100.0100, L506.1001, L501.9520 #### [facility] [address] [place], [address] Total proteinOrdered By: Michael Garcia on 04-22-2025 Protein [Mass/Vol] 6.9 g/dL 5.9-8.4 [facility] Triglycerides measurementOrd ered By: Sana Garcia on 04-22-2025 Triglyceride [Mass/Vol] 100 mg/dL <[address] [facility] Comment on above: The drugs N-Acetylcy steine and Metamizole may falsely depress this assay. Normal range: <150 mg/dLBorderline High: 150-199 mg/dLHigh: 200-499 mg/dLVery High: >500 mg/dL Vitamin D,25 Hydroxyon 04-22 Vitamin D 25-OH 32.8 ng/mL Normal 30-100 [facility] Comment on above: Result Comment: Sanna min D Status Deficiency: <20 ng/mL (50nmol/L) Insufficiency: 20-30 ng/mL (50-75 nmol/L) Sufficiency: 30-100 ng/mL (75-250 nmol/L) Toxicity: >100 ng/mL (>250 nmol/L) Performed By: #### L 500.4100, L500.4050, L100.0100, L506.1001, L501.9520 #### [facility] [place], [address] White blood cell (WBC) count Ordered By: Sana Garcia on 04-22-2025 WBC (Bld) [#/Vol] 6.6 10*3/uL 4.4-11.0 [facility] Office Vis iton 04-19-2025 Internal Medicine Office Visit [facility] [address] [place] [address] [place] [address] OFFICE VISIT Date of Service: 04/22/25 MR#: [id number] Acct: [id number] Name: JORDIN TOBAR Rep #: [id number] : 1985 Provider: Dr. Sana chávez MD Age/Sex: 39/F Location: [facility] [place] Status: Signed Intake Vital Signs 05/08/24 10:27 04/22/25 08:44 04/22/25 12:18 Height 5 ft 2 in 5 ft 2 in Weight: 265 lb 8 oz BMI 48.5 BP 146/90 H 126/88 H Blood Pressure Location Lt brachial Position Sitting Respiration 16 Pulse 83 Pulse Source Monitor Temp 97.5 F L Temp Source Temporal Pulse Oximetry (%) 98 Oxygen Delivery Method room air Intake Visit Reasons: YEARLY Chief Complaint: yearly Animal Caretaker Required: No Accompanied by: Self Is patient in pain?: No Allergies No Known Allergies Allergy (Verified 04/22/25 08:46) Medications ???Medication ???Instructions ???Recorded ???Confirmed ???Type ibuprofen 600 mg tablet 600 mg PO Q6H PRN PRN Pain #60 04/1504/22/25 Rx TABLETS albuterol sulfate 90 mcg/actuation 2 puff inhalation Q6H PRN PRN SO B 10/08/22 04/22/25 History aerosol inhaler acetaminophen 500 mg tablet 500 mg PO Q6H PRN 10/14/22 5 History (Tylenol Extra Strength) albuterol sulfate 2.5 mg/3 mL 2.5 mg (3 mL) inhalation Q4H PRN 1 12/15/21 04/22/25 Rx (0.083 %) solution for nebulization shortness of breath or wheezing #90 mL cholecalciferol (vitamin D3) 250 250 mcg PO .EVERY OTHER DAY 04/22/25 History mcg (10,000 unit) capsule zinc gluconate 30 mg tablet 30 mg PO DAILY 10/14/22 04/22/25 H istory fluticasone propionate 50 2 spray intranasal DAILY #16 grams 05/08/24 04/22/25 Rx mcg/actuation nasal spray,suspension (Allergy Relief (fluticasone)) escitalopram oxalate 5 mg tablet 5 mg PO QDAY #30 tabs 04/22/25 Rx (Lexapro) lisinopril 2.5 mg tablet 2.5 mg PO QDAY #30 tabs 04/22/25 0 04/22/25 Rx Nurse's Note: patient c/o high bp over the past few weeks stated that she can feel it when it is high gets lightheaded and dizzy has had some anxiety and lots of life stressors PFSH Medical History Hx of migraines Hx: UTI (urinary tract infection) History of back problems COVID Surgical History History of tonsillectomy History of cholecystectomy Hx of section Family History Father Arthritis Diabetes Hypertension Social History (Updated 04/22/25 @ 09:[address] Sana Garcia MD) adopted: No household members: family housing: house number of children: 2 current occupational status: employed current occupation: [employer] Smoking Status: Never smoker Electronic Cigarette Use: not used alcohol intake: current alcohol intake frequency: holidays/special occasions only substance use type: does not use what type of physical activity do you participate in: none and walking frequency: 5-6 times per week seatbelt use: always do you feel safe at home: Yes additional social history: [facility] Questionnaire [facility]-9 BMS Over the last 2 weeks, how often have you been bothered by any of the following problems? 1. Little interest or pleasure in doing things: not at all 2. Feeling down, depressed, or hopeless: more than half the days 3. Trouble falling or staying asleep, or sleeping too much: more than half the days 4. Feeling tired or having little energy: more than half the days 5. Poor appetite or overeating: not at all 6. Feeling bad about yourself - or that you are a failure or have let yourself and your family down: not at all 7. Trouble concentrating on things, such as reading the newspaper or watching television: several days 8. Moving or speaking so slowly that other people could have noticed? - Or the opposite - being so fidgety or restless that you have been moving around a lot more than usual: several days 9. Thoughts that you would be better off or of hurting yourself in some way: not at all Total score: 8 Source: Developed by Drs. Jhoan Ponce, Lauren Rodriguez, Gabino Tiwari and colleagues, with an educational ashleigh from [employer]. BRI-7 BMS BRI-7 Feeling nervous, anxious, or on edge: 1 = Several days Not being able to stop or control worryin = Not at all Worrying too much about different things: 2 = More than half the days Trouble relaxin = Several days Being so restless that it is hard to sit still: 0 = Not at all Becoming easily annoyed or irritable: 2 = More than half the days Feeling afraid as if something awful might happen: 0 = Not at all Total BRI-7 score (0-4 normal; 5-9 mild; 10-14 moderate; 15-21 severe): 6 (more content not included)... Normal [facility] B. pertussis and B. parapert ussis DNA panel (Nph)on 10-27-2024 B. parapertussis DNA MECHE+probe Ql (Unsp spec) Not detected Normal Not detected [facility] Comment on above: Order Comment: Speci men Type: SWAB Ordering Facility: [facility] Address: [address] [place], [place] [address] Performed By: #### 9 [id number] #### [facility] CLIA [id number] [address] [place] [address] [place] B. pertussis DNA MECHE+probe Ql (Nph) Not detected Normal Not detected [facility] Comment on above: Order Comment: Speci men Type: SWAB Ordering Facility: [facility] Address: [address] [place] [address] Performed By: #### 9 [id number] #### [facility] CLIA [id number] [address] [place] [address] [place] CNOVon 10-27-2024 CNOV Office Visit (UCWSTR ) JORDIN TOBAR ([id number]) 1985 F Date Time Provider Department 10/27/24 3:00 PM WILY JOHNSON [facility] During your visit today, we recorded the following information about you: Temperature Pulse Respiration Blood pressure 99.2 degrees 96/minute 16/minute 128/85 Weight 125.8 kg Wily Johnson MD 10/27/2024 3:29 PM Signed Patient presents with: Cough: With chest discomfort AND SOB x 4 days HPI: Feeling sick for 4 days. Positive symptoms: Cough, Shortness of breath, Wheezing, Chest tightness, Chest pain, Sore throat, Earache, Sinus pressure, Nasal Congestion, Rhinorrhea, Post nasal drainage, Fever, Malaise, Fatigue, Headache, Negative symptoms: Nausea, Vomiting, Diarrhea, OTC: Robitussin, Nyquil COVID test negative at work today. 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 MEDICATIONS: No current outpatient medications on file. No current facility-administered medications for this visit. ALLERGIES: ALLERGIES No Known Allergies VITALS: BP 128/85 Pulse 96 Temp 37.3 ?C (99.2 ?F) (Left Tympanic) Resp 16 Wt 125.8 kg (277 lb 5.4 oz) LMP 06/28/2023 (Approximate) SpO2 97% BMI 51.55 kg/m? PHYSICAL EXAM: GEN: mildly ill appearing HEENT: PERRL, EOMI, conjunctiva clear Ears: canals clear. TMs without erythema, bulge, or effusion Sinuses: pressure over sinuses Throat: moist mucous membranes, mild erythema, no exudate Neck: supple, no thyromegaly, no lymphadenopathy HEART: regular rate, regular rhythm, no murmurs LUNGS: clear to auscultation, no wheezes or crackles, no increased WOB ASSESSMENT/PLAN: 1. Sinobronchitis - ICD9: 473.9, 490, ICD10: J32.9, J40 (primary diagnosis) - AZITHROMYCIN 250 MG TABLET - COVID AND INFLUENZA A/B AND RSV PCR, ROUTINE - BORDETELLA PERTUSSIS AND PARAPERTUSSIS DNA, NAAT, NASOPHARYNGEAL SWAB X-ray is not currently available. Follow up in the ER this weekend with worsening cough, worsening shortness of breath, increasing chest pain, or late onset fever. Follow-up next week with failure to improve. 2. Exposure to pertussis - ICD9: V01.89, ICD10: Z20.818 - AZITHROMYCIN 250 MG TABLET - BORDETELLA PERTUSSIS AND PARAPERTUSSIS DNA, NAAT, NASOPHARYNGEAL SWAB Wily Johnson MD Allergies As of Date: 10/27/2024 (No Known Allergies) Date Reviewed: 10/27/2024 Reviewed by: Starr Santa MA - Fully Assessed Reason for Visit: Cough [28] Cmt: With chest discomfort AND SOB x 4 days Primary Visit Diagnosis:Sinobronchi tis [J32.9, J40] Other Visit Diagnosis:Exposure to pertussis [Z20.818] Order(s):azithromycin (ZITHROMAX) 250 mg tabletTake 2 tablets by mouth once daily for 1 day, THEN 1 tablet once daily for 4 days.Disp: 6 tabletRfl: 0 COVID AND INFLUENZA A/B AND RSV PCR, ROUTINE [SQCVFLRS] Order #: [id number]. #:[id number] BORDETELLA PERTUSSIS AND PARAPERTUSSIS DNA, NAAT, NASOPHARYNGEAL SWAB [SQBORAMP] Order #: [id number] FUTURE BORDETELLA PERTUSSIS AND PARAPERTUSSIS DNA, NAAT, NASOPHARYNGEAL SWAB [SQBORAMP] Order #: [id number]. #:[id number] Prescriptions as of 10/27/2024 - azithromycin (ZITHROMAX) 250 mg tablet Take 2 tablets by mouth once daily for 1 day, THEN 1 tablet once daily for 4 days. Problem List As Of Date 10/27/2024 Noted Resolved Threatened , antepartum [O20.0] 06/30/2011 01/14/2012 Unspecified high-risk [O09.90] 06/30/2011 01/27/2012 Gestational hypertension [O13.9] 01/07/2012 03/02/2012 Postoperative seroma [TVO2302] 01/27/2012 03/02/2012 Obesity complicating [O99.210] 06/17/2015 02/16/2016 Previous section [Z98.891] 06/17/2015 02/16/2016 Supervision of repeat term [Z34.90] 10/28/2015 02/16/2016 Prescriptions ordered this encounter Disp Refills Start End AZITHROMYCIN 250 MG TABLET 6 ta* 0 10/27/2024 11/01/2024 Route: ORAL Sig: Take 2 tablets by mouth once daily for 1 day, THEN 1 tablet once daily for 4 days. Medications Discontinued During This Encounter Prescriptions - benzonatate (TESSALON PERLES) 100 mg capsule (Discontinued) Reported on 07/03/2023 - ibuprofen (MOTRIN) 600 mg tablet (Discontinued) Take 600 mg by mouth every 6 hours as needed. - ibuprofen (MOTRIN) 800 mg tablet (Discontinued) Take 1 tablet by mouth every 8 hours as needed for Pain. Start taking 24 hours before surgery. - MULTIVITAMIN ORAL (Discontinued) Take by mouth once daily. - albuterol HFA (PROVENTIL HFA, VENTOLIN HFA) 90 mcg/actuation inhaler (Discontinued) Reported on 09/25/2022 Level of Service: OFFICE/OUTPATIENT ESTABLISHED MOD MDM 30 MIN [10152] Letter Text Encounter Status:Closed by WILY JOHNSON on 10/27/24 [facility] COVID AND INFLUENZA A/B AND RSV PCR, ROUTINEon 10-27-2024 SARS-CoV-2 (COVID-19) RNA MECHE+probe Ql (Unsp spec) SARS-COV-2 (AGENT OF COVID-19) RNA: Not detected INFLUENZA A RNA: Not detected INFLUENZA B RNA: Not detected RESPIRATORY SYNCYTIAL VIRUS (RSV) RNA: Not detected Normal [facility] Comment on above: Performed By: #### C VFLRS #### [facility] CLIA [id number] [address] [place] [address] STATES OF [facility] Alternaria alternata IgE ser umOrdered By: Dr. Melendez on 01-11-2023 A. alternata IgE Qn (S) <0.10 kU/L Class [address] [facility] Bordetella pertussis IgM ant ibody assayOrdered By: Dr. Melendez on 01-11-2023 B. pertussis IgM IA Qn (S) < 1.0 index 0.0-0.9 [facility] Comment on above: Negative <1.0 Border line 1.0 - 1.1 Positive >1.1 No Panel InformationOrdered By: Dr. Melendez on 01-11-2023 Bordetella pertussis IgG Antibody 5.11 index 0.00-0.94 [facility] Comment on above: Negative <0.95 Equiv ocal 0.95 - 1.04 Positive >1.04 Cat Hair Allergen <0.10 kU/L Class 0 [facility] Common Ragweed (Short) Allergen <0.10 kU/L Class 0 [facility] Immunoglobulin E 9 IU/mL 6-495 [facility] Comment on above: Performed at: [employer] [address] [id number] Director: Marog Webster MD, Phone: [phone] [place] ([place]) Allergen IgE Ab <0.10 kU/L Class 0 [facility] Mouse Urine Allergen IgE Antibody <0.10 kU/L Class 0 [facility] Comment on above: Performed at: [employer] [address] [id number] Director: Margo Webster MD, Phone: [phone] [facility] Comment Comment . [facility] Comment on above: Levels of Specific I gE Class Description of Class ----- < 0.10 0 Negative 0.10 - 0.31 0/I Equivocal/Low 0.32 - 0.55 I Low 0.56 - 1.40 II Moderate 1.41 - 3.90 III High 3.91 - 19.00 IV Very High 19.01 - 100.00 V Very High >100.00 Very High [place] Tree Allergen <0.10 kU/L Class [address] [facility] Rough pigweed specific IgE a ntibody assayOrdered By: Dr. Melendez on 01-11-2023 Rough Pigweed IgE Qn (S) <0.10 kU/L Class 0 [facility] Serum Norwegian sycamore IgE antibody assay (units/volume)Ordered By: Dr. Melendez on 01-11-2023 Norwegian [place] IgE Qn (S) <0.10 kU/L Class 0 [facility] Serum Aspergillus fumigatus IgE antibody assay (units/volume)Ordered By: Dr. Melendez on 01-11-2023 A. fumigatus IgE Qn (S) <0.10 kU/L Class 0 [facility] Serum Bermuda grass IgE anti body assay (units/volume)Ordered By: Dr. Melendez on 01-11-2023 Bermuda grass IgE Qn (S) <0.10 kU/L Class 0 [facility] Serum Bordetella pertussis I gA antibody assay (units/volume)Ordered By: Dr. Melendez on 01-11-2023 B. pertussis IgA Qn (S) 2.2 index 0.0-0.9 [facility] Comment on above: Negative <1.0 Border line 1.0 - 1.1 Positive >1.1 Serum Cladosporium herbarum IgE antibody assay (units/volume)Ordered By: Dr. Melendez on 01-11-2023 C. herbarum IgE Qn (S) <0.10 kU/L Class 0 [facility] Serum Dermatophagoides farin ae specific IgE antibody assay (units/volume)Ordered By: Dr. Melendez on 01-11-2023 Norwegian house dust mite IgE Qn (S) <0.10 kU/L Class 0 [facility] Serum house dust mi te IgE antibody assay (units/volume)Ordered By: Dr. Melendez on 01-11-2023 house dust mite IgE Qn (S) <0.10 kU/L Class 0 [facility] Serum Penicillium notatum Ig E antibody assay (units/volume)Ordered By: Dr. Melendez on 01-11-2023 P. notatum IgE Qn (S) <0.10 kU/L Class 0 [facility] Serum Periplaneta americana IgE antibody assay (units/volume)Ordered By: Dr. Melendez on 01-11-2023 Norwegian Cockroach IgE Qn (S) <0.10 kU/L Class 0 [facility] Serum Kazakh thistle specif ic IgE antibody assayOrdered By: Dr. Melendez on 01-11-2023 Saltwort IgE Qn (S) <0.10 kU/L Class 0 [facility] Serum birch specific IgE ant ibody assayOrdered By: Dr. Melendez on 01-11-2023 Silver Birch IgE Qn (S) <0.10 kU/L Class 0 [facility] Serum black walnut IgE antib william assay (units/volume)Ordered By: Dr. Melendez on 01-11-2023 Black [place] IgE Qn (S) <0.10 kU/L Class 0 [facility] Serum cottonwood IgE antibod y assay (units/volume)Ordered By: Dr. Melendez on 01-11-2023 [place] IgE Qn (S) <0.10 kU/L Class 0 [facility] Serum dog epithelium IgE ant ibody assay (units/volume)Ordered By: Dr. Melendez on 01-11-2023 Dog epithelium IgE Qn (S) <0.10 kU/L Class 0 [facility] Serum mountain cedar specifi c IgE antibody assayOrdered By: Dr. Melendez on 01-11-2023 Mountain Juniper IgE Qn (S) <0.10 kU/L Class 0 [facility] Serum pecan or hickory nut I gE antibody assay (units/volume)Ordered By: Dr. Melendez on 01-11-2023 Pecan or [place] Nut IgE Qn (S) <0.10 kU/L Class 0 [facility] Serum sheep sorrel IgE antib william assay (units/volume)Ordered By: Dr. Melendez on 01-11-2023 Sheep [place] IgE Qn (S) <0.10 kU/L Class [address] [facility] Serum bobby IgE antibody a ssay (units/volume)Ordered By: Dr. Melendez on 01-11-2023 Bobby IgE Qn (S) <0.10 kU/L Class 0 [facility] Serum white lorena IgE antibody assay (units/volume)Ordered By: Dr. Melendez on 01-11-2023 White Lorena IgE Qn (S) <0.10 kU/L Class 0 [facility] Serum white elm IgE antibody assay (units/volume)Ordered By: Dr. Melendez on 01-11-2023 White Elm IgE Qn (S) <0.10 kU/L Class 0 [facility] Serum white mulberry IgE ant ibody assay (units/volume)Ordered By: Dr. Melendez on 01-11-2023 White mulberry IgE Qn (S) <0.10 kU/L Class 0 [facility] Absolute lymphocyte countOrd ered By: Dr. Melendez on 11-08-2022 Lymphocytes Auto (Unsp spec) [#/Vol] 3.38 10*3/uL 0.83-4.51 [facility] Basophil percentageOrdered B y: Dr. Melendez on 11-08-2022 Basophils/100 WBC (Bld) 1.1 % 0-1 [facility] Chloride [Moles/Vol] 107 mmol/L 98-107 [facility] Eosinophils/100 WBC (Bld) 2.8 % 0-5 [facility] Glucose [Mass/Vol] 96 mg/dL 74-106 [facility] Neutrophils (Bld) [#/Vol] 5.2 10*3/uL 2.0-7.7 [facility] Neutrophils/100 WBC (Bld) 51.5 % 47-70 [facility] Potassium [Moles/Vol] 4.5 mmol/L 3.5-5.1 [facility] Comment on above: Slight Hemolysis, Re sult may be falsely increased. Sodium [Moles/Vol] 139 mmol/L 136-145 [facility] WBC (Bld) [#/Vol] 10.2 10*3/uL 4.4-11.0 [facility] Blood erythrocytes count (nu mber/volume)Ordered By: Dr. Melendez on 11-08-2022 RBC (Bld) [#/Vol] 4.87 10*6/uL 4.2-5.4 [facility] Blood hemoglobin measurement (mass/volume)Ordered By: Dr. Melendez on 11-08-2022 Hemoglobin (Bld) [Mass/Vol] 13.7 g/dL 12.0-15.0 [facility] Blood lymphocytes/100 leukoc ytesOrdered By: Dr. Melendez on 11-08-2022 Lymphocytes/100 WBC (Bld) 33.3 % 19-41 [facility] Blood monocytes/100 leukocyt esOrdered By: Dr. Melendez on 11-08-2022 Monocytes/100 WBC (Bld) 10.8 % 0-[address] [facility] Blood platelet mean volumeOr dered By: Dr. Melendez on 11-08-2022 Platelet mean volume (Bld) [Entitic vol] 8.1 fL 6.2-12.0 [facility] Determination of erythrocyte mean corpuscular volume (MCV)Ordered By: Dr. Melendez on 11-08-2022 MCV (RBC) [Entitic vol] 85.2 fL 81-[address] [facility] Hematocrit Auto (Bld) [Volum e fraction]Ordered By: Dr. Melendez on 11-08-2022 Hematocrit (Bld) [Volume fraction] 41.5 % 37-47 [facility] - Chemistry and C hemistry - challengeOrdered By: Dr. Melendez on 11-08-2022 CO2 [Moles/Vol] 26.0 mmol/L 21.0-32.0 [facility] Urea nitrogen/Creatinine [Mass ratio] 22.6 mg/mg 10-20 [facility] - Hematology and Cell countsOrdered By: Dr. Melendez on 11-08-2022 Erythrocyte distribution width (RBC) [Entitic vol] 40.1 fL 35.1-43.9 [facility] Erythrocyte distribution width (RBC) [Ratio] 13.0 % 11.6-14.6 [facility] Immature granulocytes/100 WBC (Bld) 0.500 % 0.0-0.9 [facility] Comment on above: IG% - Immature Granu locytes (promyelocytes, myelocytes and metamyelocytes) > 1% indicates that a LEFT SHIFT is Present. MCH (RBC) [Entitic mass] 28.1 pg 27.0-32.0 [facility] Nucleated RBC/100 WBC (Bld) [Ratio] 0 % 0-5 [facility] MCHC Auto (RBC) [Mass/Vol]Or dered By: Dr. Melendez on 11-08-2022 MCHC (RBC) [Mass/Vol] 33.0 g/dL 32-36 [facility] No Panel InformationOrdered By: Dr. Melendez on 11-08-2022 Estimated GFR (MDRD) Amer 97 mL/min >60 [facility] Comment on above: GFR Calc Estimated GFR (MDRD) Non-Af Amer 81 mL/min >60 [facility] Comment on above: Non- GFR Calc Platelets bldOrdered By: Dr. Melendez on 11-08-2022 Platelets (Bld) [#/Vol] 531 10*3/uL 150-450 [facility] Serum or plasma calcium malik urement (mass/volume)Ordered By: Dr. Melendez on 11-08-2022 Calcium [Mass/Vol] 9.1 mg/dL 8.5-10.1 [facility] Serum or plasma creatinine m easurement (mass/volume)Ordered By: Dr. Melendez on 11-08-2022 Creatinine [Mass/Vol] 0.84 mg/dL 0.55-1.02 [facility] Comment on above: The validity of the calculated GFR & GFRAA in patients over 70 years has not been determined. Clinical correlation is essential. Serum or plasma urea nitroge n measurement (mass/volume)Ordered By: Dr. Melendez on 11-08-2022 Urea nitrogen [Mass/Vol] 19 mg/dL 7-18 [facility] Thin prep Papanicolaou smear with manual screeningOrdered By: Dr. Melendez on 11-08-2022 Thin prep Papanicolaou smear with manual screening 6 5-15 [facility] Absolute lymphocyte countOrd ered By: Dr. Garcia on 10-14-2022 Lymphocytes Auto (Unsp spec) [#/Vol] 3.40 10*3/uL 0.83-4.51 [facility] Basophil percentageOrdered B y: Dr. Garcia on 10-14-2022 Basophils/100 WBC (Bld) 1.2 % 0-[address] [facility] Bilirubin [Mass/Vol] 0.60 mg/dL 0.20-1.00 [facility] Comment on above: For patients on eltr ombopag therapy, use of Dimension [place] TBIL is not recommended. Chloride [Moles/Vol] 110 mmol/L 98-107 [facility] Eosinophils/100 WBC (Bld) 3.7 % 0-5 [facility] Glucose [Mass/Vol] 98 mg/dL 74-106 [facility] Neutrophils (Bld) [#/Vol] 7.4 10*3/uL 2.0-7.7 [facility] Neutrophils/100 WBC (Bld) 59.7 % 47-70 [facility] Potassium [Moles/Vol] 4.7 mmol/L 3.5-5.1 [facility] Protein [Mass/Vol] 7.5 g/dL 6.4-8.2 [facility] Sodium [Moles/Vol] 141 mmol/L 136-145 [facility] WBC (Bld) [#/Vol] 12.4 10*3/uL 4.4-11.0 [facility] Blood erythrocytes count (nu mber/volume)Ordered By: Dr. Garcia on 10-14-2022 RBC (Bld) [#/Vol] 4.99 10*6/uL 4.2-5.4 [facility] Blood hemoglobin measurement (mass/volume)Ordered By: Dr. Garcia on 10-14-2022 Hemoglobin (Bld) [Mass/Vol] 14.4 g/dL 12.0-15.0 [facility] Blood lymphocytes/100 leukoc ytesOrdered By: Dr. Garcia on 10-14-2022 Lymphocytes/100 WBC (Bld) 27.4 % 19-41 [facility] Blood monocytes/100 leukocyt esOrdered By: Dr. Garcia on 10-14-2022 Monocytes/100 WBC (Bld) 7.2 % 0-[address] [facility] Blood platelet mean volumeOr dered By: Dr. Garcia on 10-14-2022 Platelet mean volume (Bld) [Entitic vol] 8.3 fL 6.2-12.0 [facility] Determination of erythrocyte mean corpuscular volume (MCV)Ordered By: Dr. Garcia on 10-14-2022 MCV (RBC) [Entitic vol] 85.2 fL 81-[address] [facility] Hematocrit Auto (Bld) [Volum e fraction]Ordered By: Dr. Garcia on 10-14-2022 Hematocrit (Bld) [Volume fraction] 42.5 % 37-47 [facility] - Chemistry and C hemistry - challengeOrdered By: Dr. Garcia on 10-14-2022 ALP [Catalytic activity/Vol] 55 U/L 45-117 [facility] ALT [Catalytic activity/Vol] 34 U/L 13-56 [facility] CO2 [Moles/Vol] 26.0 mmol/L 21.0-32.0 [facility] Globulin (S) [Mass/Vol] 3.6 g/dL 2.2-4.2 [facility] Urea nitrogen/Creatinine [Mass ratio] 15.8 mg/mg 10-20 [facility] - Hematology and Cell countsOrdered By: Dr. Garcia on 10-14-2022 Erythrocyte distribution width (RBC) [Entitic vol] 39.4 fL 35.1-43.9 [facility] Erythrocyte distribution width (RBC) [Ratio] 13.0 % 11.6-14.6 [facility] [facility] Immature granulocytes/100 WBC (Bld) 0.800 % 0.0-0.9 [facility] Comment on above: IG% - Immature Granu locytes (promyelocytes, myelocytes and metamyelocytes) > 1% indicates that a LEFT SHIFT is Present. MCH (RBC) [Entitic mass] 28.9 pg 27.0-32.0 [facility] Nucleated RBC/100 WBC (Bld) [Ratio] 0 % 0-5 [facility] Laboratory - Microbiology an d Antimicrobial susceptibilityOrdered By: Dr. Garcia on 10-14-2022 SARS-CoV-2 (COVID-19) RNA MECHE+probe Ql (Unsp spec) Not detected Not Detect [facility] Comment on above: Normal Reference Ran ge: Not DetectedMethod:(RT-PCR) real-time reverse transcriptase PCRLuminex JIMENA Instrument*The Food and Drug Administration (FDA) has issued an Emergency Use Authorization (EAU) for the Codingpeople SARS-CoV-2 Assay for the rapid detection of the virus that causes COVID-19. This test has been validated, but the FDAs independent review of this validation is pending.*Negative results do not preclude infection and should not be used as the sole basis for treatment or patient management. Optimum specimen types and timing for peak viral levels during infections caused by SARS-CoV-2 have not been determined. Collection of multiple specimens from the same patient may be necessary to detect the virus. The possibility of a false negative result should be considered if the patient has clinical presentation or has had recent exposure. Respiratory pathogens DNA and RNA 12b panel MECHE+probe (Unsp spec) [facility] [[facility]/Vol]Or dered By: Dr. Garcia on 10-14-2022 MCHC (RBC) [Mass/Vol] 33.9 g/dL 32-36 [facility] No Panel InformationOrdered By: Dr. Garcia on 10-14-2022 Estimated GFR (MDRD) Amer 85 mL/min >60 [facility] Comment on above: GFR Calc Estimated GFR (MDRD) Non-Af Amer 70 mL/min >60 [facility] Comment on above: Non- GFR Calc Platelets bldOrdered By: Dr. Garcia on 10-14-2022 Platelets (Bld) [#/Vol] 543 10*3/uL 150-450 [facility] Serum Mycoplasma pneumoniae IgG antibody detectionOrdered By: Dr. Garcia on 10-14-2022 M. pneumoniae IgG Ql (S) 211 U/mL 0-99 [facility] Comment on above: Negative: <100 Indet erminate: 100 - 320 Positive: >320The reference interval established is intended as abaseline only. Values >100 may indicate a recentinfection with Mycoplasma pneumoniae and need to beconfirmed either by a positive IgM result and/or anadditional specimen drawn 2-4 weeks later showing asignificant increase in antibody levels. Serum Mycoplasma pneumoniae IgM antibody detectionOrdered By: Dr. Garcia on 10-14-2022 M. pneumoniae IgM Ql (S) < 770 U/mL 0-769 [facility] Comment on above: Negative <770Clinica lly significant amount of M. pneumoniae antibodynot detected. Low Positive 770 - 950M. pneumoniae specific IgM presumptively detected. Itis recommended that another sample be collected 1-2weeks later to assure reactivity. Positive >950Highly significant amount of M. pneumoniae specificIgM antibody detected.Performed at: [facility] [id number] Director: Bunny Mcgee PhD, Phone: [phone] Serum or plasma albumin malik urement (mass/volume)Ordered By: Dr. Garcia on 10-14-2022 Albumin [Mass/Vol] 3.9 g/dL 3.2-5.0 [facility] Serum or plasma albumin/glob ulin mass ratioOrdered By: Dr. Garcia on 10-14-2022 Albumin/Globulin [Mass ratio] 1.1 {ratio} 0.9-2.4 [facility] Serum or plasma calcium malik urement (mass/volume)Ordered By: Dr. Garcia on 10-14-2022 Calcium [Mass/Vol] 9.4 mg/dL 8.5-10.1 [facility] Serum or plasma creatinine m easurement (mass/volume)Ordered By: Dr. Garcia on 10-14-2022 Creatinine [Mass/Vol] 0.95 mg/dL 0.55-1.02 [facility] Comment on above: The validity of the calculated GFR & GFRAA in patients over 70 years has not been determined. Clinical correlation is essential. Serum or plasma urea nitroge n measurement (mass/volume)Ordered By: Dr. Garcia on 10-14-2022 Urea nitrogen [Mass/Vol] 15 mg/dL 7-18 [facility] Thin prep Papanicolaou smear with manual screeningOrdered By: Dr. Garcia on 10-14-2022 Thin prep Papanicolaou smear with manual screening 18 U/L 15-37 [facility] Thin prep Papanicolaou smear with manual screening 5 5-15 [facility] XR CHEST 2V FRONTAL/LATon [facility] XR Chest PA and Lateralon IMPRESSION: No acute radiographic abnormality. Scrap Iron Loader: [id number] Transcribe Date/Time: Sep 25 2022 11:31A Dictated by : BEV GARCIA DO This examination was interpreted and the report reviewed and electronically signed by: BEV GARCIA DO on Sep 25 2022 11:33AM [facility] DIVISION OF RADIOLOGY * * *Final Report* * * DATE OF EXAM: Sep 25 2022 11:27AM WOX [id number] - XR CHEST 2V FRONTAL/LAT / PROCEDURE REASON: Acute cough * * * * Physician Interpretation * * * * EXAMINATION: CHEST RADIOGRAPH (2 VIEW FRONTAL & LATERAL) PATIENT/TECHNOLOGIST PROVIDED HISTORY: Pt. states cough for 1 month. Hx of fever on and off during that time. CLINICAL HISTORY: 36 years old Female with Acute cough MQ: XC2_6 EXAM DATE/TIME: 09/25/2022 11:27 AM COMPARISON: Chest radiograph 11/20/2017 RESULT: Lines, tubes, and devices: None. Lungs and pleura: No consolidation. No pleural effusion. No pneumothorax. Cardiomediastinal silhouette: Normal cardiomediastinal silhouette. Bones and soft tissues: No acute findings. DIVISION OF RADIOLOGY Provider, [facility] Tania [facility] - 09/25/2022 * * *Final Report* * * DATE OF EXAM: Sep 25 2022 11:27AM WOX [id number] - XR CHEST 2V FRONTAL/LAT / PROCEDURE REASON: Acute cough * * * * Physician Interpretation * * * * EXAMINATION: CHEST RADIOGRAPH (2 VIEW FRONTAL & LATERAL) PATIENT/TECHNOLOGIST PROVIDED HISTORY: Pt. states cough for 1 month. Hx of fever on and off during that time. CLINICAL HISTORY: 36 years old Female with Acute cough MQ: XC2_6 EXAM DATE/TIME: 09/25/2022 11:27 AM COMPARISON: Chest radiograph 11/20/2017 RESULT: Lines, tubes, and devices: None. Lungs and pleura: No consolidation. No pleural effusion. No pneumothorax. Cardiomediastinal silhouette: Normal cardiomediastinal silhouette. Bones and soft tissues: No acute findings. IMPRESSION IMPRESSION: No acute radiographic abnormality. Scrap Iron Loader: [email or web address] Transcribe Date/Time: Sep 25 2022 11:31A Dictated by : BEV GARCIA DO This examination was interpreted and the report reviewed and electronically signed by: BEV GARCIA DO on Sep 25 2022 11:33AM EST [facility] Radiology Study observation (narrative) Tati anderson [facility] XR Chest PA and LateralOrder ed By: Ccf Provider on 09-25-2022 [facility] COVID PCR, SCREENING CONGREG ATEon 04-24-2020 CORONAVIRUS 2019,PCR NOT DETECTED Normal Not Detected [facility] Comment on above: Result Comment: This assay is designed to detect the N, ORF1ab and/or S genes of SARS-CoV-2 via nucleic acid amplification. A Negative (NOT DETECTED) result does not preclude 2019-nCoV infection since the adequacy of sample collection and/or low viral burden may result in presence of viral nucleic acids below the clinical sensitivity of this test method. Negative (NOT DETECTED) result should not be used as the sole basis for treatment or other patient management decisions. Rather negative results should be combined with clinical observations, patient history, and epidemiological information to make patient management decisions. Fact sheet for providers: https://www.fda.gov/media/586428/download Fact sheet for patients: https://www.fda.gov/media/070601/download This test has received FDA Emergency Use Authorization (EUA) and has been verified by [facility] ([facility]). This test is only authorized for the duration of time that circumstances exist to justify the authorization of the emergency use of in vitro diagnostic tests for the detection of SARS-CoV-2 virus and/or diagnosis of COVID-19 infection under section 564(b)(1) of the Act, 21 U.S.C. 360bbb-3(b)(1), unless the authorization is terminated or revoked sooner. [facility] ([facility]) is certified under CLIA-88 as qualified to perform high complexity testing. This tests analytical performance characteristics have been determined by [facility]. Testing is performed at [facility] is located at [address] [place] [address] (CLIA License #[id number], CAP #[id number]). Performed By: #### C VCLA #### [facility] [address] [place] [address] COVID PCR, SCREENING CONGREG ATEon 04-23-2020 Lab Specimen Source Nasal, Nasopharyngeal Normal [facility] Comment on above: Performed By: #### C VCLA #### [facility] [address] [place] [address] Laboratory - Microbiology an d Antimicrobial susceptibility Respiratory pathogens DNA and RNA 12b panel MECHE+probe (Unsp spec) [facility] Work Phone: Vital Signs Date Time Vital Sign Value Performing Clinician Facility 05-20-2025 14:01-0400 Body height 157.[address] Sana Garcia MD Work Phone: [facility] 05-20-2025 14:01-0400 Body mass index (BMI) [Ratio] 48.4 kg/m2 Dr. Sana Garcia MD Work Phone: [facility] 05-20-2025 14:01-0400 Body temperature 97.5 [degF] Dr. Sana Garcia MD Work Phone: [facility] 05-20-2025 14:01-0400 Body weight 119.[address] Sana Garcia MD Work Phone: [facility] 05-20-2025 14:01-0400 Diastolic blood pressure 67 mm[Hg] Dr. Sana Garcia MD Work Phone: [facility] 05-20-2025 14:01-0400 Heart rate 72 /min Dr. Sana Garcia MD Work Phone: [facility] 05-20-2025 14:01-0400 Respiratory rate 18 /min Dr. Sana Garcia MD Work Phone: [facility] 05-20-2025 14:01-0400 SaO2% (BldA) [Mass fraction] 99 % Dr. Sana Garcia MD Work Phone: [facility] 05-20-2025 14:01-0400 Systolic blood pressure 113 mm[Hg] Dr. Sana Garcia MD Work Phone: [facility] 04-22-2025 12:18-0400 Diastolic blood pressure 88 mm[Hg] Dr. Sana Garcia MD Work Phone: [facility] 04-22-2025 12:18-0400 Systolic blood pressure 126 mm[Hg] Dr. Sana Garcia MD Work Phone: [facility] 04-22-2025 08:44-0400 Body height 157.[address] Sana Garcia MD Work Phone: [facility] 04-22-2025 08:44-0400 Body mass index (BMI) [Ratio] 48.5 kg/m2 Dr. Sana Garcia MD Work Phone: [facility] 04-22-2025 08:44-0400 Body temperature 97.5 [degF] Dr. Sana Garcia MD Work Phone: [facility] 04-22-2025 08:44-0400 Body weight 120.[address] Sana Garcia MD Work Phone: [facility] 04-22-2025 08:44-0400 Diastolic blood pressure 90 mm[Hg] Dr. Sana Garcia MD Work Phone: [facility] 04-22-2025 08:44-0400 Heart rate 83 /min Dr. Sana Garcia MD Work Phone: [facility] 04-22-2025 08:44-0400 Respiratory rate 16 /min Dr. Sana Garcia MD Work Phone: [facility] 04-22-2025 08:44-0400 SaO2% (BldA) [Mass fraction] 98 % Dr. Sana Garcia MD Work Phone: [facility] 04-22-2025 08:44-0400 Systolic blood pressure 146 mm[Hg] Dr. Sana Garcia MD Work Phone: [facility] 10-27-2024 15:12-0500 Body mass index (BMI) [Ratio] 51.55 kg/m2 Wily Johnson MD Work Phone: [facility] 10-27-2024 15:12-0500 Body temperature 99.19 [degF] Wily Johnson MD Work Phone: [facility] 10-27-2024 15:12-0500 Body weight 125.8 kg Wily Johnson MD Work Phone: [facility] 10-27-2024 15:12-0500 Diastolic blood pressure 85 mm[Hg] Wily Johnson MD Work Phone: [facility] 10-27-2024 15:12-0500 Heart rate 96 /min Wily Johnson MD Work Phone: [facility] 10-27-2024 15:12-0500 Respiratory rate 16 /min Wily Johnson MD Work Phone: [facility] 10-27-2024 15:12-0500 SaO2% (BldA) [Mass fraction] 97 % Wily Johnson MD Work Phone: [facility] 10-27-2024 15:12-0500 Systolic blood pressure 128 mm[Hg] Wily Johnson MD Work Phone: [facility] 07-03-2023 13:33-0400 Body temperature 100.09 [degF] Narciso Arauz APRN.FORM LAYER Work Phone: [facility] 07-03-2023 13:33-0400 Body weight 121.29 kg Narciso Arauz APRN.FORM LAYER Work Phone: [facility] 07-03-2023 13:33-0400 Diastolic blood pressure 80 mm[Hg] Narciso King INSTITUTE DIRECTOR.FORM LAYER Work Phone: [facility] 07-03-2023 13:33-0400 Heart rate 94 /min Narciso Arauz INSTITUTE DIRECTOR.FORM LAYER Work Phone: [facility] 07-03-2023 13:33-0400 Respiratory rate 20 /min Narciso Arauz INSTITUTE DIRECTOR.FORM LAYER Work Phone: [facility] 07-03-2023 13:33-0400 SaO2% (BldA) [Mass fraction] 95 % Narciso Arauz INSTITUTE DIRECTOR.FORM LAYER Work Phone: [facility] 07-03-2023 13:33-0400 Systolic blood pressure 138 mm[Hg] Narciso Arauz INSTITUTE DIRECTOR.FORM LAYER Work Phone: [facility] 01-11-2023 10:13-0400 Body height 157.48 cm No Primary Care Physician [facility] 01-11-2023 10:13-0400 Diastolic blood pressure 77 mm[Hg] No Primary Care Physician [facility] 01-11-2023 10:13-0400 Systolic blood pressure 120 mm[Hg] No Primary Care Physician [facility] 01-11-2023 08:15-0400 Body mass index (BMI) [Ratio] 49.4 kg/m2 No Primary Care Physician [facility] 01-11-2023 08:15-0400 Body temperature 97.2 [degF] No Primary Care Physician [facility] 01-11-2023 08:15-0400 Body weight 122.46 kg No Primary Care Physician [facility] 01-11-2023 08:15-0400 Heart rate 74 /min No Primary Care Physician [facility] 01-11-2023 08:15-0400 Respiratory rate 18 /min No Primary Care Physician [facility] 01-11-2023 08:15-0400 SaO2% (BldA) [Mass fraction] 97 % No Primary Care Physician [facility] 01-10-2023 14:00-0400 Body mass index (BMI) [Ratio] 49.8 kg/m2 No Primary Care Physician [facility] 01-10-2023 14:00-0400 Body weight 123.6 kg No Primary Care Physician [facility] 01-10-2023 14:00-0400 Diastolic blood pressure 78 mm[Hg] No Primary Care Physician [facility] 01-10-2023 14:00-0400 Systolic blood pressure 116 mm[Hg] No Primary Care Physician [facility] 01-06-2023 16:04-0500 Body mass index (BMI) [Ratio] 50.6 kg/m2 No Primary Care Physician [facility] 01-06-2023 16:04-0500 Body temperature 95.8 [degF] No Primary Care Physician [facility] 01-06-2023 16:04-0500 Body weight 125.64 kg No Primary Care Physician [facility] 01-06-2023 16:04-0500 Diastolic blood pressure 94 mm[Hg] No Primary Care Physician [facility] 01-06-2023 16:04-0500 Heart rate 85 /min No Primary Care Physician [facility] 01-06-2023 16:04-0500 Respiratory rate 18 /min No Primary Care Physician [facility] 01-06-2023 16:04-0500 SaO2% (BldA) [Mass fraction] 98 % No Primary Care Physician [facility] 01-06-2023 16:04-0500 Systolic blood pressure 138 mm[Hg] No Primary Care Physician [facility] 11-08-2022 08:59-0500 Body height 157.48 cm No Primary Care Physician [facility] Work Phone: 11-08-2022 08:52-0500 Body mass index (BMI) [Ratio] 50.6 kg/m2 No Primary Care Physician [facility] 11-08-2022 08:52-0500 Body temperature 97.5 [degF] No Primary Care Physician [facility] 11-08-2022 08:52-0500 Body weight 125.64 kg No Primary Care Physician [facility] 11-08-2022 08:52-0500 Diastolic blood pressure 93 mm[Hg] No Primary Care Physician [facility] 11-08-2022 08:52-0500 Heart rate 87 /min No Primary Care Physician [facility] 11-08-2022 08:52-0500 Respiratory rate 18 /min No Primary Care Physician [facility] 11-08-2022 08:52-0500 SaO2% (BldA) [Mass fraction] 97 % No Primary Care Physician [facility] 11-08-2022 08:52-0500 Systolic blood pressure 139 mm[Hg] No Primary Care Physician [facility] 10-14-2022 15:05-0500 Body height 157.48 cm No Primary Care Physician [facility] Work Phone: 10-14-2022 15:05-0500 Body mass index (BMI) [Ratio] 50.5 kg/m2 No Primary Care Physician [facility] 10-14-2022 15:05-0500 Body temperature 97.8 [degF] No Primary Care Physician [facility] 10-14-2022 15:05-0500 Body weight 125.19 kg No Primary Care Physician [facility] 10-14-2022 15:05-0500 Diastolic blood pressure 88 mm[Hg] No Primary Care Physician [facility] 10-14-2022 15:05-0500 Heart rate 106 /min No Primary Care Physician [facility] 10-14-2022 15:05-0500 Respiratory rate 16 /min No Primary Care Physician [facility] 10-14-2022 15:05-0500 SaO2% (BldA) [Mass fraction] 96 % No Primary Care Physician [facility] 10-14-2022 15:05-0500 Systolic blood pressure 110 mm[Hg] No Primary Care Physician [facility] 10-08-2022 19:14-0500 Diastolic blood pressure 71 mm[Hg] [facility] 10-08-2022 19:14-0500 Heart rate 88 /min [facility] 10-08-2022 19:14-0500 Respiratory rate 22 /min [facility] 10-08-2022 19:14-0500 SaO2% (BldA) [Mass fraction] 96 % [facility] 10-08-2022 19:14-0500 Systolic blood pressure 121 mm[Hg] [facility] 10-08-2022 15:14-0500 Body height 154.[address] [facility] Work Phone: 10-08-2022 15:14-0500 Body mass index (BMI) [Ratio] 53.3 kg/m2 [facility] 10-08-2022 15:14-0500 Body temperature 98.5 [degF] [facility] 10-08-2022 15:14-0500 Body weight 128.[address] [facility] 09-25-2022 11:03-0500 Body temperature 98.91 [degF] Marii Cortes INSTITUTE DIRECTOR.FORM LAYER Work Phone: [facility] 09-25-2022 11:03-0500 Body weight 126.55 kg Marii Cortes INSTITUTE DIRECTOR.FORM LAYER Work Phone: [facility] 09-25-2022 11:03-0500 Diastolic blood pressure 82 mm[Hg] Marii Cortes INSTITUTE DIRECTOR.FORM LAYER Work Phone: [facility] 09-25-2022 11:03-0500 Heart rate 93 /min Marii Cortes INSTITUTE DIRECTOR.FORM LAYER Work Phone: [facility] 09-25-2022 11:03-0500 Respiratory rate 18 /min Marii Cortes INSTITUTE DIRECTOR.FORM LAYER Work Phone: [facility] 09-25-2022 11:03-0500 SaO2% (BldA) [Mass fraction] 98 % Marii Cortes INSTITUTE DIRECTOR.FORM LAYER Work Phone: [facility] 09-25-2022 11:03-0500 Systolic blood pressure 122 mm[Hg] Marii Cortes INSTITUTE DIRECTOR.FORM LAYER Work Phone: [facility] Encounters Encounter Date Encounter Type Care Provider Facility Start: 05-23-[address] Sana Garcia MD -Sleep Lab Work Phone: Start: 05-23-2025 ambulatory Sana Garcia Facility :[facility] Start: 05-20-2025 End: 05-20-[address] Adore Stacy MD -[facility] Work Phone: Start: 05-20-2025 End: 05-20-[address] Sana Garcia MD Work Phone: -[facility] Start: 05-14-2025 End: 05-14-[address] Sana Garcia MD Work Phone: -[facility] Start: 05-14-2025 End: 05-14-[address] Sana Garcia MD -[facility] Work Phone: Start: 05-14-2025 End: 05-14-2025 ambulatory Sana Garcia Facility:[facility] Start: 05-06-2025 End: 05-06-[address] Sana Garcia MD Work Phone: -[facility]patient [facility] Start: 05-06-2025 End: 05-06-[address] Sana Garcia MD -[facility] Work Phone: Start: 05-06-2025 End: 05-06-2025 ambulatory Sana Garcia Facility:[facility] Start: 04-22-2025 End: 04-22-[address] Sana Garcia MD -[facility] Work Phone: Start: 04-22-2025 End: 04-22-[address] Sana Garcia MD Work Phone: [facility] Work Phone: Start: 04-22-2025 End: 04-22-2025 ambulatory Sana Garcia Facility:[facility] Start: 10-28-2024 End: 10-28-2024 ambulatory Savannah Nation RN NURSE FLIGHT DIRECTOR Comment on above: Results, Lab Start: 10-27-2024 End: 10-27-2024 ambulatory Facility:[facility] Start: 10-27-2024 End: 10-27-2024 Office outpatient visit 25 minutes Wily Johnson MD Work Phone: [facility] Comment on above: Sinobronchitis (Prim martha Dx); Exposure to pertussis Start: 07-03-2023 End: 07-03-2023 Patient encounter procedure Narciso Arauz APRN.FORM LAYER Work Phone: [facility] Comment on above: Lower resp. tract in fection (Primary Dx) Start: 01-11-2023 End: 01-11-2023 ambulatory No Primary Care Physician [facility] Work Phone: Start: 01-11-2023 End: 01-11-2023 Patient encounter procedure No Primary Care Physician [facility]-Laboratory, [facility] Start: 01-10-2023 End: 01-10-2023 ambulatory No Primary Care Physician [facility] Work Phone: Start: 01-10-2023 End: 01-10-2023 Patient encounter procedure No Primary Care Physician [facility]-Laboratory, Specimen Start: 01-10-2023 End: 01-10-2023 Patient encounter procedure No Primary Care Physician [facility] Start: 01-06-2023 End: 01-06-2023 Patient encounter procedure No Primary Care Physician [facility] Internal Medicine Start: 12-29-2022 End: 12-29-2022 Patient encounter procedure No Primary Care Physician [facility]-Cat Scan, [facility] Start: 11-08-2022 End: 11-08-2022 ambulatory No Primary Care Physician [facility] Work Phone: Start: 11-08-2022 End: 11-08-2022 Patient encounter procedure No Primary Care Physician [facility]-Laboratory, [facility] Start: 11-08-2022 End: 11-08-2022 Patient encounter procedure No Primary Care Physician [facility]-Pulmonary Medicine [facility] Start: 10-21-2022 End: 10-21-2022 Patient encounter procedure No Primary Care Physician [facility]-Cat Scan, [facility] Start: 10-14-2022 End: 10-14-2022 ambulatory No Primary Care Physician [facility] Work Phone: Start: 10-14-2022 End: 10-14-2022 Patient encounter procedure No Primary Care Physician [facility]-Laboratory, [facility] Start: 10-14-2022 End: 10-14-2022 Patient encounter procedure No Primary Care Physician [facility] Internal Medicine Start: 10-08-2022 End: 10-08-2022 Emergency department patient visit [facility]-Emergency Department Start: 09-25-2022 End: 09-25-2022 Patient encounter procedure Marii Cortes APRN.FORM LAYER Work Phone: [facility] Comment on above: Acute cough (Primary Dx) Start: 09-25-2022 End: 09-25-2022 Subsequent hospital visit by physician [facility], [facility] Work Phone: Radiology Comment on above: Acute cough [R05.1] Procedures Date Procedure Procedure Detail Performing Clinician Start: 05-14-[address] Sana Garcia MD Work Phone: Start: 05-06-2025 Screening mammography Dre Garcia MD Work Phone: Start: 04-22-2025 Vitamin D, 25-hydrox y measurement Dr. Sana Garcia MD Work Phone: Comment on above: Vitamin D StatusDefi ciency: <20 ng/mL (50nmol/L)Insufficiency: 20-30 ng/mL (50-75 nmol/L)Sufficiency: 30-100 ng/mL (75-250 nmol/L)Toxicity: >100 ng/mL (>250 nmol/L) Start: 12-29-2022 CT angiography of ch est with contrast No Primary Care Physician Start: 10-21-2022 CT of thorax with contrast No Primary Care Physician Start: 10-08-2022 Plain chest X-ray Start: 09-25-2022 Radiologic exam ches t 2 views Marii Cortes APRN.FORM LAYER Work Phone: Start: 06-17-2015 End: 02-16-2016 H/O: section Previous section Xr [place] Work Phone: H/O: section Hx of sect ion No Primary Care Physician History of cholecystectomy History of cholecystectomy No Primary Care Physician History of tonsillectomy History of tonsi llectomy No Primary Care Physician Respiratory Panel (PCR) No [place] Care Physician Respiratory Panel (PCR) No [place] Care Physician Plan of Treatment Date Care Activity Detail Author Start: 12-02-2025 Urine microalbumin profile [facility] Start: 05-06-2025 MG Breast - bilatera l Screening [facility] Start: 04-22-2025 CBC W Auto Different ial panel - Blood [facility] Start: 04-22-2025 Comprehensive metabo lic 2000 panel - Serum or Plasma [facility] Start: 04-22-2025 Lipid 1996 panel - S murali or Plasma [facility] Start: 04-22-2025 Thyroid stimulating hormone measurement [facility] Start: 04-22-2025 Vitamin D, 25-hydrox y measurement [facility] Start: 10-27-2024 End: 01-26-2025 Bordetella pertussis and Bordetella parapertussis DNA panel - Nasopharynx [facility] Work Phone: Comment on above: Expected: 10/27/2024 , Expires: 01/26/2025 Start: 2024 Screening for malign ant neoplasm of breast Mammogram Screening [facility] Start: 07-01-2024 Covid-19 Vaccine ( season) Covid-19 Vaccine ( season) [facility] Start: 07-01-2024 Influenza vaccination Influenza Vacc ine (#1) [facility] Start: 07-01-2023 Influenza vaccination INFLUENZA (#1) [facility] Start: 01-10-2023 Liquid based cervica l cytology screening [facility] Start: 10-31-2022 DEPRESSION ASSESSMENT DEPRESSION ASS ESSMENT [facility] Start: 10-14-2022 Patient referral [facility] Work Phone: Start: 10-08-2022 Respiratory secretio n precautions [facility] Start: 07-01-2022 Influenza vaccination INFLUENZA (#1) [facility] Start: 12-05-2021 COVID-19 VACCINE (3 - Booster for Pfizer series) COVID-19 VACCINE (3 - Booster for Pfizer series) [facility] Start: 12-05-2021 COVID-19 VACCINE (3 - Pfizer series) COVID-19 VACCINE (3 - Pfizer series) [facility] Start: 10-31-2021 DEPRESSION ASSESSMENT DEPRESSION ASS ESSMENT [facility] Start: 07-11-2020 PAP TESTING PAP TESTING [facility] Start: 06-24-2020 HPV TESTING HPV TESTING [facility] Start: 07-11-2018 Screening for malign ant neoplasm of cervix Cervical Cancer Screening [facility] Start: 2003 Hepatitis B Vaccine (1 of 3 - 19+ 3-dose series) Hepatitis B Vaccine (1 of 3 - 19+ 3-dose series) [facility] Start: 2002 Anxiety Screening Anxiety Screening [facility] Start: 2002 Depression Screening Depression Scre ening [facility] Start: 2002 HEPATITIS C SCREENING HEPATITIS C [facility] Start: 2002 Hepatitis C screening Hepatitis C [facility] Start: 1984 HEPATITIS B (1 of 3 - 3-dose series) HEPATITIS B (1 of 3 - 3-dose series) [facility] Alanine aminotransfe rase [Enzymatic activity/volume] in Serum or Plasma [facility] Albumin [Mass/volume ] in Serum or Plasma [facility] Alkaline phosphatase [Enzymatic activity/volume] in Serum or Plasma [facility] Anion gap in Serum o r Plasma [facility] Bacteria identified in Sputum by Culture [facility] Work Phone: Bacteria identified in Sputum by Culture [facility] Bilirubin, total measurement [facility] BUN/Creatinine ratio [facility] Calcium [Mass/volume ] in Serum or Plasma [facility] Carbon dioxide, tota l [Moles/volume] in Central venous blood [facility] Cholesterol [Mass/vo lume] in Serum or Plasma [facility] Cholesterol in HDL [Mass/volume] in Serum or Plasma [facility] COVID & INFLUENZA A/ B & RSV PCR, ROUTINE COVID & INFLUENZA A/B & RSV PCR, ROUTINE Microbiology Routine Sinobronchitis 10/27/2024 3:54 PM EST [facility] Creatinine [Mass/vol ume] in Serum or Plasma [facility] CTA Chest vessels WO and W contrast IV [facility] Work Phone: Erythrocyte mean corpuscular volume determination [facility] Glucose [Mass/volume ] in Serum or Plasma [facility] Hematocrit [Volume Fraction] of Blood [facility] Hemoglobin [Mass/vol ume] in Blood [facility] Influenza virus A an d B RNA and SARS-CoV-2 (COVID-19) N gene panel - Respiratory specimen by MECHE with probe detection COVID & INFLUENZA A/B NAAT, ROUTINE Microbiology Routine Lower resp. tract infection 07/03/2023 2:[address] [facility] Work Phone: Leukocytes [#/volume ] in Blood [facility] Low density lipoprot ein cholesterol measurement [facility] Mean corpuscular hemoglobin concentration determination [facility] Mean corpuscular hemoglobin determination [facility] Measurement of renal function [facility] MG Breast - bilatera l Screening [facility] Neutrophil count [facility] Neutrophil percent differential count [facility] Path report.final Dx Spec [facility] Patient Education ED Dyspnea [facility] Work Phone: Patient referral [facility] Work Phone: Platelets [#/volume] in Blood [facility] Potassium measurement [facility] Red blood cell count [facility] Red cell distributio n width determination [facility] Serum chloride measurement [facility] Sodium measurement [facility] Total cholesterol:HD L ratio measurement [facility] Total protein measurement [facility] Triglycerides measurement [facility] Urea nitrogen [Mass/volume] in Serum or Plasma [facility] VLDL cholesterol measurement [facility] Immunizations Immunization Date Immunization Notes Care Provider Fa cility 10-10-2021 Covid (Pfizer) No Primary Ca re Physician [facility] 09-10-2021 Covid (Pfizer) No Primary Ca re Physician [facility] 12-02-2015 tetanus toxoid, redu maldonado diphtheria toxoid, and acellular pertussis vaccine, adsorbed Mraii Cortes INSTITUTE DIRECTOR.FORM LAYER Work Phone: [facility] Payers Date Payer Category Payer Unknown [id number] 2025 Self-pay [id number] 2021 Unknown [employer] PPO [id number] 2021-Present [phone] [address] [place] [address] PPO [id number] 2013 Unknown [id number] 2013 Unknown [id number] Unknown [id number] Unknown [id number] Unknown [id number] Unknown [id number] Unknown [id number] Unknown [id number] Unknown [id number] Social History Date Type Detail Facility Start: 06-23-2011 End: 04-22-2025 Tobacco smoking status KYIS Never smoked tobacco [facility] Start: 06-23-2011 Tobacco use and exposure Smokeless tobacco non-user [facility] Start: 09-25-2022 End: 10-27-2024 Alcohol intake Current non-drinker of alcohol (finding) [facility] Start: 1985 Sex Assigned At Not on file [facility] Start: 10-08-2022 End: 01-11-2023 Tobacco smoking status KYIS Unknown if ever smoked [facility] Start: 1985 Sex Assigned At Female [facility] Start: 2020 End: 07-03-2023 History of Social function [facility] Start: 2020 End: 07-03-2023 Tobacco use panel [facility] National Score (1-100), lower number is lower risk Not on file [facility] NEGATED: Highlighted row [facility] Clinical Notes 10-28-2015 to 05-14-2025 Note Date & Type Note Facility 05-14-2025 Radiology Diagnostic study note [facility] [address] [place] [address] Breast Limited Unilateral MR#: [id number] Acct: [id number] Name: JORDIN TOBAR Rep #: [id number] : 1985 F 39 From: Scott Han MD PCP: Dr. Sana Garcia MD Status: REG CLI Study:Breast Limited Unilateral Date of Exam: 05/14/25 Exam# [id number] Ordering Dr: Sana Garcia MD PROCEDURE: BREAST LIMITED UNILATERAL 05/14/2025 REASON FOR EXAM: F, Age 39 y/o , ABNORMAL MAMMOGRAM COMPARISON: Prior mammogram dated May 06, 2025.. TECHNIQUE: BREAST LIMITED UNILATERAL FINDINGS: The mammographic abnormality corresponds to a 1.7 cm 1.6 cm 1.1 cm well-defined hypoechoic nodule at the 8 o'clock position of the breast at 9 cm from the nipple. There is evidence of some posterior acoustical shadowing. This may represent a fibroadenoma although targeted biopsy recommended. US/Breast Limited Unilateral IMPRESSION: The mammographic abnormality corresponds to a 1.7 cm 1.6 cm 1.1 cm well-defined hypoechoic solid nodule with some posterior acoustical shadowing as described. This most likely represents a fibroadenoma. Biopsy recommended. BI-RADS 4: SUSPICIOUS ABNORMALITY. RECOMMENDATION: Biopsy Recommended Reading Location: [id number] CC: Dr. Sana Garcia MD ~ Scrap Iron Loader: Signed [facility] 04-22-2025 Evaluation note Diagnosis Onset Date Resolution Refractory chronic cough noneactive April 22, 2025 8:30am Screening for cardiovascular condition noneactive April 222024 8:30am Suspected sleep apnea noneactive Mar 8:30am Primary hypertension noneactive April 22, 2025 8:30am Anxiety and depression noneactive Ju ne 2024 8:30am Screening for breast cancer noneactive April 22, 2025 8:30am Vitamin d deficiency noneactive April 22, 2025 8:30am [facility] Work Phone: 1(668) 431-335206-23-2025 Evaluation note* Diagnosis Onset Date Resolution Status Admit Date Refractory chronic cough noneactive April 22, 2025 8:30am Screening for cardiovascular condition noneactive April 22, 2025 8:30am Suspected sleep apnea noneactive Valdez e 2024 8:30am Primary hypertension noneactive April 22, 2025 8:30am Anxiety and depression noneactive Ju ne 2024 8:30am Screening for breast cancer noneacti ve April 22, 2025 8:30am Vitamin d deficiency noneactive April 22, 2025 8:30am Abnormal ultrasound of breast acute May 20, 2025 1:47pm [facility] Work Phone: 1(399) 783-174412-29-2024 Telephone encounter Note* Telephone Encounter - Savannah Nation RN - 10/28/2024 10:13 AM EST Reason for call: Patient calling with request for lab result Patient denies any new or worsening symptoms of which a provider is not aware: Yes. Patient calling for Covid/Flu/RSV and pertussis result. Outcome: Covid/flu/rsv lab result given to patient. Informed patient that pertussis result is not back yet and that she will need to speak with [facility] for Pertussis result. Patient verbalized understanding. GO TO THE EMERGENCY ROOM OR CALL 911 IF: * You develop any new symptoms * Your condition worsens * You are concerned or anxious about your condition for any other reason. If you have any questions, you can call Nurse sterilisation technician back. [facility]12-29-2024 Miscellaneous Notes* Telephone Encounter - Savannah Nation RN - 10/28/2024 10:13 AM EST Reason for call: Patient calling with request for lab result Patient denies any new or worsening symptoms of which a provider is not aware: Yes. Patient calling for Covid/Flu/RSV and pertussis result. Outcome: Covid/flu/rsv lab result given to patient. Informed patient that pertussis result is not back yet and that she will need to speak with [facility] for Pertussis result. Patient verbalized understanding. GO TO THE EMERGENCY ROOM OR CALL 911 IF: * You develop any new symptoms * Your condition worsens * You are concerned or anxious about your condition for any other reason. If you have any questions, you can call Nurse sterilisation technician back. documented in [facility]12[facility] NoteHNO ID: [id number] Author: WILY JOHNSON MD Service: ? Author Type: Physician Type: Progress Notes Filed: 10/27/2024 15:29 Note Text: Patient presents with: Cough: With chest discomfort AND SOB x 4 days HPI: Feeling sick for 4 days. Positive symptoms: Cough, Shortness of breath, Wheezing, Chest tightness, Chest pain, Sore throat, Earache, Sinus pressure, Nasal Congestion, Rhinorrhea, Post nasal drainage, Fever, Malaise, Fatigue, Headache, Negative symptoms: Nausea, Vomiting, Diarrhea, OTC: Robitussin, Nyquil COVID test negative at work today. 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 MEDICATIONS: No current outpatient medications on file. No current facility-administered medications for this visit. ALLERGIES: ALLERGIES No Known Allergies VITALS: BP 128/85 Pulse 96 Temp 37.3 ?C (99.2 ?F) (Left Tympanic) Resp 16 Wt 125.8 kg (277 lb 5.4 oz) LMP 06/28/2023 (Approximate) SpO2 97% BMI 51.55 kg/m? PHYSICAL EXAM: GEN: mildly ill appearing HEENT: PERRL, EOMI, conjunctiva clear Ears: canals clear. TMs without erythema, bulge, or effusion Sinuses: pressure over sinuses Throat: moist mucous membranes, mild erythema, no exudate Neck: supple, no thyromegaly, no lymphadenopathy HEART: regular rate, regular rhythm, no murmurs LUNGS: clear to auscultation, no wheezes or crackles, no increased WOB ASSESSMENT/PLAN: 1. Sinobronchitis - ICD9: 473.9, 490, ICD10: J32.9, J40 (primary diagnosis) - AZITHROMYCIN 250 MG TABLET - COVID AND INFLUENZA A/B AND RSV PCR, ROUTINE - BORDETELLA PERTUSSIS AND PARAPERTUSSIS DNA, NAAT, NASOPHARYNGEAL SWAB X-ray is not currently available. Follow up in the ER this weekend with worsening cough, worsening shortness of breath, increasing chest pain, or late onset fever. Follow-up next week with failure to improve. 2. Exposure to pertussis - ICD9: V01.89, ICD10: Z20.818 - AZITHROMYCIN 250 MG TABLET - BORDETELLA PERTUSSIS AND PARAPERTUSSIS DNA, NAAT, NASOPHARYNGEAL SWAB Wily Johnson, [facility]12-28-2024 History of Present illness Narrative* Wily Johnson MD - 10/27/2024 3:13 PM EST Patient presents with: Cough: With chest discomfort & SOB x 4 days HPI: Feeling sick for 4 days. Positive symptoms: Cough, Shortness of breath, Wheezing, Chest tightness, Chest pain, Sore throat, Earache, Sinus pressure, Nasal Congestion, Rhinorrhea, Post nasal drainage, Fever, Malaise, Fatigue,Headache, Negative symptoms: Nausea, Vomiting, Diarrhea, OTC: Robitussin, Nyquil COVID test negative at work today. Reports she was exposed to pertussis 1 week ago by a resident atthe [employer] she works at. MEDICATIONS: No current outpatient medications on file. No current facility-administered medications for this visit. ALLERGIES: ALLERGIES No Known Allergies VITALS: BP 128/85 Pulse 96 Temp 37.3 C (99.2 F) (Left Tympanic) Resp 16 Wt 125.8 kg (277 lb 5.4 oz) LMP 06/28/2023 (Approximate) SpO2 97% BMI 51.55 kg/m PHYSICAL EXAM: GEN: mildly ill appearing HEENT: PERRL, EOMI, conjunctiva clear Ears: canals clear. TMs without erythema, bulge, or effusion Sinuses: pressure over sinuses Throat: moist mucous membranes, mild erythema, no exudate Neck: supple, no thyromegaly, no lymphadenopathy HEART: regular rate, regular rhythm, no murmurs LUNGS: clear to auscultation, no wheezes or crackles, no increased WOB ASSESSMENT/PLAN: 1. Sinobronchitis - ICD9: 473.9, 490, ICD10: J32.9, J40 (primary diagnosis) - AZITHROMYCIN 250 MG TABLET - COVID & INFLUENZA A/B & RSV PCR, ROUTINE - BORDETELLA PERTUSSIS AND PARAPERTUSSIS DNA, NAAT, NASOPHARYNGEAL SWAB X-ray is not currently available. Follow up in the ER this weekend with worsening cough, worsening shortness of breath, increasing chest pain, or late onset fever. Follow-up next week with failure to improve. 2. Exposure to pertussis - ICD9: V01.89, ICD10: Z20.818 - AZITHROMYCIN 250 MG TABLET - BORDETELLA PERTUSSIS AND PARAPERTUSSIS DNA, NAAT, NASOPHARYNGEAL SWAB Wily Johnson MD documented in [facility] encounterL[facility]09-03-[facility] Instructions* Patient Instructions* Narciso Arauz APRN.CNP - 07/03/2023 1:50 PM EDT ASSESSMENT/PLAN: 1. Lower resp. tract infection - ICD9: 519.8, ICD10: J22 - Discussed supportive care, given educational handout - Limit exposure to smoke and other inhaled irritants - Discussed possible red flags and when to seek medical attention - Follow up in 3-5 days or sooner if no better or worse -If you experience chest pain/shortness of breath go to ER - DOXYCYCLINE MONOHYDRATE 100 MG TABLET - COVID & INFLUENZA A/B NAAT, ROUTINE documented in this encounterLicking [facility]09-03-2023 History of Present illness Narrative* Narciso Arauz APRN.CNP - 07/03/2023 1:40 PM EDT Subjective HPI HPI Jordin Tobar is a 37 year old female who presents today for CC of cough, chest heaviness, st,congestion. This started 4 days ago/worsenning. Has tried otc medication for relief. Symptoms are worsened by nothing. Risk factors hx of long respiratory illness rt covid last year. nonsmoker. .Patient presents with: Cough: X4 days, fever, body aches PAST MEDICAL HISTORY Diagnosis Date Obesity PAST SURGICAL HISTORY Procedure Laterality Date DELIVERY ONLY 01/19/12 , low transverse DELIVERY ONLY 02/02/16 , low transverse LAPAROSCOPY SURG CHOLECYSTECTOMY 09-22-12 PAST SURGICAL HISTORY OF ORAL SURGERY TONSILLECTOMY PRIMARY/SECONDARY <AGE 11 02/2013 Tonsillectomy ALLERGIES Patient has no known allergies. MEDICATIONS ibuprofen (MOTRIN) 800 mg tablet Take 1 tablet by mouth every 8 hours as needed for Pain. Start taking 24 hours before surgery. benzonatate (TESSALON PERLES) 100 mg capsule Take 1 capsule by mouth three times daily as needed for cough. (Patient not taking: Reported on 07/03/2023) albuterol HFA (PROVENTIL HFA, VENTOLIN HFA) 90 mcg/actuation inhaler Inhale 2 Puffs as instructed every 4 hours as needed. (Patient not taking: Reported on 09/25/2022) MULTIVITAMIN ORAL Take by mouth once daily. ibuprofen (MOTRIN) 600 mg tablet Take 600 mg by mouth every 6 hours as needed. FAMILY HISTORY Problem Relation Age of Onset Diabetes Paternal Grandfather Diabetes Paternal Aunt Diabetes Paternal Uncle Heart Paternal Grandfather Hypertension Paternal Aunt Hypertension Paternal Uncle Hypertension Father Social History Tobacco Use Smoking status: Never Smokeless tobacco: Never Substance Use Topics Alcohol use: No Drug use: No Review of Systems Constitutional: Negative for fever. HENT: Positive for congestion. Negative for ear discharge, nosebleeds and sore throat. Respiratory: Positive for cough. Negative for shortness of breath and wheezing. Cardiovascular: Negative for chest pain. Musculoskeletal: Negative for neck pain. Objective Blood pressure 138/80, pulse 94, temperature 37.8 C (100.1 F), resp. rate 20, weight 121.3 kg (267 lb 6.4 oz), last menstrual period 06/28/2023, SpO2 95 %. Physical Exam Constitutional: General: She is not in acute distress. Appearance: She is not toxic-appearing or diaphoretic. HENT: Head: Normocephalic and atraumatic. Cardiovascular: Rate and Rhythm: Normal rate and regular rhythm. Heart sounds: Normal heart sounds, S1 normal and S2 normal. Pulmonary: Effort: Pulmonary effort is normal. Breath sounds: Examination of the left-middle field reveals rhonchi. Rhonchi present. No decreased breath sounds, wheezing or rales. Lymphadenopathy: Cervical: No cervical adenopathy. Right cervical: No superficial cervical adenopathy. Left cervical: No superficial cervical adenopathy. Neurological: Mental Status: She is alert and oriented to person, place, and time. Gait: Gait is intact. ASSESSMENT/PLAN: 1. Lower resp. tract infection - ICD9: 519.8, ICD10: J22 No xray at time of exam. - Discussed supportive care, given educational handout - Limit exposure to smoke and other inhaled irritants - Discussed possible red flags and when to seek medical attention - Follow up in 3-5 days or sooner if no better or worse -If you experience chest pain/shortness of breath go to ER - DOXYCYCLINE MONOHYDRATE 100 MG TABLET - COVID & INFLUENZA A/B NAAT, ROUTINE Narciso Arauz APRN.FORM LAYER documented in this encounterL[facility]11-26-2022 Instructions* Patient Instructions* Marii Cortes APRN.ARLENE - 09/25/2022 11:45 AM EST COUGH: Your doctor wants you to have this information about coughing. The body has a cough reflex which helps expel mucous secretions and irritants from the lung and airway passages. Cough spasms are periods of continuous coughing lasting several minutes. Most coughs is caused by virus infections which may last for up to 2-3 weeks. Coughing helps to protect the lung from pneumonia. A persistent cough lasting longer than 4-6 weeks requires medical evaluation by your primary care doctor. Treatment of cough includes measures to loosen the cough and thin the mucous. Warm liquids, cough drops, and nonprescription cough medicine may help reduce dry hacking cough. Use a humidifier if necessary as dry air can make coughs worse. Ultrasonic humidifiers are especially useful as they kill molds and many bacteria. Some cough medicines have antihistamines, decongestants, or alcohol in them; there is no proof that any of these help control cough. Prescription cough medicine or those with dextromethorphan (DM) should be reserved for dry coughs that prevent sleep or cause spasms or chest pain. Avoid any exposure to cigarette smoke as this will worsen the cough or make it last much longer. Call your doctor right away if you or your child have increased breathing difficulty, a high fever, a cough that lasts longer than 3 weeks, or other serious complaints. documented in this encounterLicking [facility] Hospital11-26-2022 History of Present illness Narrative* Marii Cortes APRN.ARLENE - 09/25/2022 11:14 AM EST This note was created using MadeCloser[employer]. Subjective Jordin Tobar is a 36 year old female. 36 year old female with recent COVID presents for complaints of continued cough. 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 Has utilized Nyquil and Dayquil. States the cough continued " and just thought I should get checked out" Denies CP. Denies hemoptysis. Denies abdominal pain Denies fever or chills Denies tobacco usage. The history is provided by the patient. No educational speech language clinician was used. Cough This is a new problem. The current episode started more than 1 week ago. The problem occurs constantly. The problem has been gradually worsening. The cough is Non-productive. There has been no fever.Associated symptoms include chills. Pertinent negatives include no chest pain, no sweats, no weightloss, no ear congestion, no ear pain, no headaches, no rhinorrhea, no sore throat, no myalgias, no shortness of breath, no wheezing and no eye redness. Treatments tried: NyQuil and DayQuil. The treatment provided no relief. She is not a smoker. Her past medical history does not include bronchitis, pneumonia, bronchiectasis, COPD, emphysema or asthma. PAST MEDICAL HISTORY Diagnosis Date Obesity PAST SURGICAL HISTORY Procedure Laterality Date DELIVERY ONLY 01/19/12 , low transverse DELIVERY ONLY 02/02/16 , low transverse LAPAROSCOPY SURG CHOLECYSTECTOMY 09-22-12 PAST SURGICAL HISTORY OF ORAL SURGERY TONSILLECTOMY PRIMARY/SECONDARY <AGE 11 02/2013 Tonsillectomy ALLERGIES Patient has no known allergies. MEDICATIONS benzonatate (TESSALON PERLES) 100 mg capsule Take 1 capsule by mouth three times daily as needed for cough. predniSONE (DELTASONE) 10 mg tablet Take 4 tabs daily for 3 days, then 2 tabs daily for 3 days, then 1 tab daily for 3 days with food. albuterol HFA (PROVENTIL HFA, VENTOLIN HFA) 90 mcg/actuation inhaler Inhale 2 Puffs as instructed every 4 hours as needed. (Patient not taking: Reported on 09/25/2022) MULTIVITAMIN ORAL Take by mouth once daily. ibuprofen (MOTRIN) 800 mg tablet Take 1 tablet by mouth every 8 hours as needed for Pain. Start taking 24 hours before surgery. ibuprofen (MOTRIN) 600 mg tablet Take 600 mg by mouth every 6 hours as needed. FAMILY HISTORY Problem Relation Age of Onset Diabetes Paternal Grandfather Diabetes Paternal Aunt Diabetes Paternal Uncle Heart Paternal Grandfather Hypertension Paternal Aunt Hypertension Paternal Uncle Hypertension Father Social History Tobacco Use Smoking status: Never Smokeless tobacco: Never Substance Use Topics Alcohol use: No Drug use: No Review of Systems Constitutional: Positive for chills and fatigue. Negative for fever and weight loss. HENT: Negative for ear pain, rhinorrhea and sore throat. Eyes: Negative for pain, discharge, redness and itching. Respiratory: Positive for cough. Negative for apnea, choking, chest tightness, shortness of breath and wheezing. Cardiovascular: Negative for chest pain, palpitations and leg swelling. Gastrointestinal: Negative for abdominal pain, diarrhea, nausea and vomiting. Musculoskeletal: Negative for arthralgias, back pain, gait problem and myalgias. Skin: Negative for color change, pallor, rash and wound. Allergic/Immunologic: Negative for environmental allergies, food allergies and immunocompromised state. Neurological: Negative for dizziness, facial asymmetry, light-headedness, numbness and headaches. Hematological: Negative for adenopathy. Does not bruise/bleed easily. Psychiatric/Behavioral: Negative for agitation and behavioral problems. Objective BP 122/82 Pulse 93 Temp 37.2 C (98.9 F) Resp 18 Wt 126.6 kg (279 lb) LMP 11/07/2017 (Approximate) SpO2 98% BMI 51.86 kg/m Physical Exam Vitals and nursing note reviewed. Constitutional: General: She is not in acute distress. Appearance: Normal appearance. She is normal weight. She is not ill-appearing, toxic-appearing or diaphoretic. HENT: Head: Normocephalic and atraumatic. Right Ear: Ear canal and external ear normal. Left Ear: Ear canal and external ear normal. Nose: Nose normal. No congestion or rhinorrhea. Mouth/Throat: Mouth: Mucous membranes are moist. Pharynx: No oropharyngeal exudate or posterior oropharyngeal erythema. Eyes: General: Right eye: No discharge. Left eye: No discharge. Extraocular Movements: Extraocular movements intact. Conjunctiva/sclera: Conjunctivae normal. Pupils: Pupils are equal, round, and reactive to light. Cardiovascular: Rate and Rhythm: Normal rate and regular rhythm. Pulses: Normal pulses. Heart sounds: Normal heart sounds. No murmur heard. No friction rub. Pulmonary: Effort: Pulmonary effort is normal. No respiratory distress. Breath sounds: Normal breath sounds. No stridor. No wheezing, rhonchi or rales. Comments: Harsh cough with deep inspiration noted. Chest: Chest wall: No tenderness. Abdominal: General: Abdomen is flat. There is no distension. Palpations: Abdomen is soft. There is no mass. Tenderness: There is no abdominal tenderness. There is no right CVA tenderness, left CVA tenderness, guarding or rebound. Hernia: No hernia is present. Musculoskeletal: General: No swelling, tenderness, deformity or signs of injury. Normal range of motion. Cervical back: Normal range of motion and neck supple. No rigidity. Right lower leg: No edema. Left lower leg: No edema. Lymphadenopathy: Cervical: No cervical adenopathy. Skin: General: Skin is warm and dry. Capillary Refill: Capillary refill takes less than 2 seconds. Coloration: Skin is not jaundiced or pale. Findings: No bruising, erythema, lesion or rash. Neurological: General: No focal deficit present. Mental Status: She is alert and oriented to person, place, and time. Cranial Nerves: No cranial nerve deficit. Sensory: No sensory deficit. Motor: No weakness. Coordination: Coordination normal. Gait: Gait normal. Psychiatric: Mood and Affect: Mood normal. Behavior: Behavior normal. Thought Content: Thought content normal. Judgment: Judgment normal. Assessment and Plan ASSESSMENT/PLAN: 1. Acute cough - ICD9: 786.2, ICD10: R05.1 X 1 month Associates it onset at time of COVID diagnosis. - XR CHEST 2V FRONTAL/LAT-negative for masses or pneumonias. Discussed that this could be post tussive No red flags RX Tessalon Perles and Prednisone taper If symptoms persist past 6 weeks, patient to follow up with PCP and discuss need for PFT Marii Cortes APRN.FORM LAYER [facility] History of Present illness Narrative* Theo Juarez RT(R) - 09/25/2022 10:00 AM EST Radiology Service Progress Note PATIENT NAME: Jordin Tobar DATE OF SERVICE: September 25, 2022 TIME: 11:22 AM PATIENT IDENTITY VERIFICATION COMPLETED USING TWO (2) IDENTIFIERS: Name and Date of confirmedby patient verbally. FALL SCREENING: Has the patient had 2 falls in the last year or 1 fall with injury or currently using an Ambulatory Assistive Device (Walker, Cane, Wheelchair, Crutches, etc.)? No PATIENT GENDER DATA: Female. status: : No status: NO. PATIENT RELEVANT IMPLANT DATA REVIEWED: Not Applicable RADIOLOGY DEPARTMENT: General X-ray: Exam(s) Completed: Chest X-Ray PERIPHERAL IV DATA: Not applicable SIGNED BY: RT Calos(R) September 25, 2022 11:22 AM [facility] History of Past illness Narrative* Problem Noted Date Resolved Date Supervision of repeat term 10/28/2015 02/16/2016 Overview: Girl on us- Ramandeep Obesity complicating 06/17/2015 0 02/16/2016 Previous section 06/17/20152015 Overview: Planning repeat c section and bilateral tubal ligation with SM Postoperative seroma 01/27/2012 03/02/2012 Gestational hypertension 01/07/2012 012 Threatened , antepartum 06/30/2011 01/14/2012 Unspecified high-risk 06/30/2011 01/27/2012 documented as of this encounter (statuses as of 09/25/2022) [facility] History of Past illness Narrative* Problem Noted Date Diagnosed Date Resolved Date Supervision of repeat term 10/28/2015 02/16/2016 Overview: Girl on us- Ramandeep Obesity complicating 06/17/2015 02/16/2016 Previous section 06/17/2015 Overview: Planning repeat c section and bilateral tubal ligation with SM Postoperative seroma 01/27/2012 012 Gestational hypertension 01/07/201212/2011 Threatened , antepartum 06/30/2011 01/14/2012 Unspecified high-risk 06/30/2011 01/27/2012 documented as of this encounter (statuses as of 07/03/2023) [facility]Reason for visit Narrative* 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, 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 Reason for Visit Immunization decline d Refractory chronic cough Establishing care with new doctor, encounter for Screening for cervical cancer [facility] Work Phone: Evaluation note* Diagnosis Acute cough- Primary documented in this encounter [facility] noteNo assessment information availableWWilson [facility] Work Phone: Evaluation note* Diagnosis Onset Date Resolution Status Immunization declined noneac tive Refractory chronic cough non eactive Establishing care with new doctor, encounter for noneactive Screening for cervical cancer noneactive [facility] Work Phone: Evaluation note* Diagnosis Onset Date Resolution Status Immunization declined noneac tive Refractory chronic cough non eactive Establishing care with new doctor, encounter for noneactive Screening for cervical cancer noneactive Bronchitis due to COVID-19 virus acute History of pneumonia acute Sinusitis acute [facility] Work Phone: Evaluation note* Diagnosis Onset Date Resolution Status Immunization declined noneac tive Refractory chronic cough non eactive Establishing care with new doctor, encounter for noneactive Screening for cervical cancer noneactive Bronchitis due to COVID-19 virus acute History of pneumonia acute Acute pain of both ears none active Acute bronchitis noneactive Enlarged uterus acute Encounter for routine gynecological examination noneactive Chronic cough chronic [facility] Work Phone: Evaluation note* Diagnosis Lower resp. tract infection- Primary Other diseases of respiratory system, not elsewhere classified [facility] Diagnosis Acute cough documented in this encounter [facility] note* Diagnosis Sinobronchitis- Primary Unspecified sinusitis (chronic) Exposure to pertussis Contact with or exposure to other communicable diseases documented in this encounter [facility] note* Diagnosis Onset Date Resolution Status Admit Date Immunization declined noneactive Mar 8:30am Refractory chronic cough noneactive April 22, 2025 8:30am Screening for cardiovascular condition noneactive April 22, 2025 8:30am Primary hypertension noneactive April 22, 2025 8:30am Screening for breast cancer noneacti ve April 22, 2025 8:30am Hypertension noneactive April 22, 025 8:30am Vitamin d deficiency noneactive April 22, 2025 8:30am [facility] Work Phone: Reason for referral (narrative)No reason for referral information availableSan [facility] Work Phone: Summary Purpose Family History Relationship Condition Age at Onset Recorded Date/T tabitha father Arthritis Unknown Diabetes mellitus Unknown Hypertension Unknown Advance Directives Advance Directive Response Recorded Date/ Time Living Will No October 08 4:02pm Power of Developer Automatic No October 08, 2022 4:02pm Advance Directive Response Recorded Date/ Time Living Will No October 08 5:02pm Power of Developer Automatic No October 08, 2022 5:02pm Chief Complaint and Reason for Visit Chief Complaint Admit Date YEARLY April 22, 2025 8:30 am screening May 06, 2025 12:38 pm Reason for Visit Admit Date Refractory chronic cough April 22, 2025 8:30am Screening for cardiovascular condition J une 2024 8:30am Suspected sleep apnea April 22, 2025 8: 30am Primary hypertension April 22, 2025 8:3 0am Anxiety and depression April 22, 2025 8 :30am Screening for breast cancer April 22 8:30am Vitamin d deficiency April 22, 2025 8:3 0am Chief Complaint Admit Date YEARLY April 22, 2025 8:30 am Chief Complaint COUGH 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, 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 Reason for Visit Immunization decline d Refractory chronic cough Establishing care with new doctor, encounter for Screening for cervical cancer Bronchitis due to COVID-19 virus History of pneumonia Sinusitis 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, 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 HX OF PNEUMONIA Not feeling 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 Reason for Visit Immunization decline d Refractory chronic cough Establishing care with new doctor, encounter for Screening for cervical cancer Bronchitis due to COVID-19 virus History of pneumonia Acute pain of both ears Acute bronchitis Enlarged uterus Encounter for routine gynecological examination Chronic cough Reason for Visit Admit Date Immunization declined April 22, 2025 8: 30am Refractory chronic cough April 22, 2025 8:30am Screening for cardiovascular condition J [facility] 2024 8:30am Primary hypertension April 22, 2025 8:3 0am Screening for breast cancer April 22 8:30am Hypertension April 22, 2025 8:30 am Vitamin d deficiency April 22, 2025 8:3 0am Chief Complaint Admit Date YEARLY April 22, 2025 8:30 am screening May 06, 2025 12:38 pm ABN TORIE May 14, 2025 12:2 5pm BIRADS May 20, 2025 1:47 pm Chief Complaint Admit Date YEARLY April 22, 2025 8:30 am screening May 06, 2025 12:38 pm ABN TORIE May 14, 2025 12:2 5pm BIRADS May 20, 2025 1:47 pm R BREAST BIOPSY May 20, 2025 2:00 pm G47.10 - Hypersomnia, unspecified May 012024 10:01am Reason for Visit Admit Date Refractory chronic cough April 22, 2025 8:30am Screening for cardiovascular condition J [facility] 2024 8:30am Suspected sleep apnea April 22, 2025 8: 30am Primary hypertension April 22, 2025 8:3 0am Anxiety and depression April 22, 2025 8 :30am Screening for breast cancer April 22 8:30am Vitamin d deficiency April 22, 2025 8:3 0am Abnormal ultrasound of breast May 20, 2025 1:47pm Additional Source Comments INFORMATION SOURCE (unrecogn ized section and content) DATE CREATED AUTHOR 05/20/2020 [facility] DATE CREATED AUTHOR AUTHOR'S ORGANIZ ATION 10/28/2024 [facility] DATE CREATED AUTHOR AUTHOR'S ORGANIZ ATION [facility] Source Comments (unrecognize d section and content) In the event this informatio n is protected by the Federal Confidentiality of Alcohol and Drug Abuse Patient Records regulations: The Federal rules restrict any use of the information to criminally investigate or prosecute any alcohol or drug abuse patient.[facility] HospitalIn the event this information is protected by the Federal Confidentiality of Alcohol and Drug Abuse Patient Records regulations: The Federal rules restrict any use of the information to criminally investigate or prosecute any alcohol or drug abuse patient.[facility] HospitalIn the event this information is protected by the Federal Confidentiality of Alcohol and Drug Abuse Patient Records regulations: The Federal rules restrict any use of the information to criminally investigate or prosecute any alcohol or drug abuse patient.[facility] HospitalIn the event this information is protected by the Federal Confidentiality of Alcohol and Drug Abuse Patient Records regulations: The Federal rules restrict any use of the information to criminally investigate or prosecute any alcohol or drug abuse patient.[facility] HospitalIn the event this information is protected by the Federal Confidentiality of Alcohol and Drug Abuse Patient Records regulations: The Federal rules restrict any use of the information to criminally investigate or prosecute any alcohol or drug abuse patient.[facility] Reason for Visit (unrecogniz ed section and content) Reason Comments Cough X 1 mo Reason Comments Cough X4 days, fever, body aches Specialty Diagnoses / Procedures Referred By Cielo flores Referred To Contact Radiology / [facility] Diagnoses Acute cough Acute cough [R05.1] Procedures RADIOLOGIC EXAM CHEST 2 VIEWS XR CHEST Marii Cortes, INSTITUTE DIRECTOR.FORM LAYER [address] [place] [address] Radio [facility] [address] [place] [address] Referral ID Status Reason Start Date Expiration Date Visits Re quested Visits Authorized [id number] Closed 09/25/2022 10/30/2022 1 1 Reason Comments Cough With chest discomfor t & SOB x 4 days Reason Comments Results, Lab Goals (unrecognized section and content) Goals may be documented in a n alternate sectionGoals may be documented in an alternate sectionGoals may be documented in an alternate sectionGoals may be documented in an alternate sectionGoals may be documented in an alternate sectionGoals may be documented in an alternate sectionGoals may be documented in an alternate sectionGoals may be documented in an alternate sectionGoals may be documented in an alternate sectionGoals may be documented in an alternate sectionGoals may be documented in an alternate section Care Teams (unrecognized sec tion and content) Team Status: Active Member Role Status Dates No Primary Care Physician Family Provider Active Team Status: Inactive Member Role Status Dates No Primary Care Physician Referring Provider Active Dr. Sana Garcia MD Primary Care Provider, Attendi ng Provider Active Team Status: Inactive Member Role Status Dates Dr. Sana Garcia MD Primary Care Provider, Referri ng Provider Active Dr. Woody Melendez MD Attending Provider Active Team Status: Inactive Member Role Status Dates Dr. Sana Garcia MD Primary Care Provider, Referri ng Provider Active Rama Isaacs LEAD FURNACE OPERATOR, LEAD FURNACE OPERATOR-C Attending Provider Active Team Status: Inactive Member Role Status Dates Dr. Sana Garcia MD Primary Care Pro vider, Attending Provider, Referring Provider Active Team Status: Inactive Member Role Status Dates Dr. Dilshad Lomeli DO Attending Provider, Emergency Provider Active Dr. Sana Garcia MD Primary Care Provider Active Team Status: Inactive Member Role Status Dates Dr. Sana Garcia MD Primary Care Provider Active Dr. Woody Melendez MD Attending Provider, Referring Provider Active Team Status: Inactive Member Role Status Dates Dr. Sana Garcia MD Primary Care Provider Active Rama Isaacs LEAD FURNACE OPERATOR, LEAD FURNACE OPERATOR-C Attending Provider, Referring Provider Active Team Status: Active Member Role Status Dates Dr. Sana Garcia MD Primary Care Provider Active Dr. Woody Melendez MD Attending Provider, Referring Provider Active Team Status: Active Member Role Status Dates No Primary Care Physician Family Provider Active Dr. Sana Garcia MD Primary Care Provider Active Team Status: Inactive Member Role Status Dates Dr. Sana Garcia MD Primary Care Provider Active Start: April 22, 2025 End: April 22, 2025 Dr. Sana Garcia MD Attending Provider Active Start: April 22, 2025 End: April 22, 2025 Dr. Sana Garcia MD Referring Provider Active Start: April 22, 2025 End: April 22, 2025 Team Status: Active Member Role Status Dates Dr. Sana Garcia MD Primary Care Provider Active Start: April 22, 2025 Dr. Sana Garcia MD Attending Provider Active Start: April 22, 2025 Dr. Sana Garcia MD Referring Provider Active Start: April 22, 2025 Team Status: Active Member Role/Relationship Status Dates Dr. Sana Garcia MD Primary Care Provider Active Team Status: Inactive Member Role/Relationship Status Dates Dr. Sana Garcia MD Primary Care Provider Active Start: April 22, 2025 End: April 22, 2025 Dr. Sana Garcia MD Attending Provider Active Start: April 22, 2025 End: April 22, 2025 Dr. Sana Garcia MD Referring Provider Active Start: April 22, 2025 End: April 22, 2025 Team Status: Inactive Member Role/Relationship Status Dates Dr. Sana Garcia MD Primary Care Provider Active Start: April 22, 2025 End: April 22, 2025 Dr. Sana Garcia MD Attending Provider Active Start: April 22, 2025 End: April 22, 2025 Dr. Sana Garcia MD Referring Provider Active Start: April 22, 2025 End: April 22, 2025 Team Status: Inactive Member Role/Relationship Status Dates Dr. Sana Garcia MD Primary Care Provider Active Start: May 06, 2025 End: May 06, 2025 Dr. Sana Garcia MD Attending Provider Active Start: May 06, 2025 End: May 06, 2025 Dr. Sana Garcia MD Referring Provider Active Start: May 06, 2025 End: May 06, 2025 Team Status: Active Member Role/Relationship Status Dates Dr. Sana Garcia MD Primary Care Provider Active Start: May 14, 2025 Dr. Saan Garcia MD Attending Provider Active Start: May 14, 2025 Dr. Sana Garcia MD Referring Provider Active Start: May 14, 2025 Team Status: Inactive Member Role/Relationship Status Dates Dr. Sana Garcia MD Primary Care Provider Active Start: May 20, 2025 End: May 20, 2025 Dr. Sana Garcia MD Referring Provider Active Start: May 20, 2025 End: May 20, 2025 Dr. Adore Stacy MD Attending Provider Active Start: May 20, 2025 End: May 20, 2025 Team Status: Inactive Member Role/Relationship Status Dates Dr. Sana Garcia MD Primary Care Provider Active Start: May 14, 2025 End: May 14, 2025 Dr. Sana Garcia MD Attending Provider Active Start: May 14, 2025 End: May 14, 2025 Dr. Sana Garcia MD Referring Provider Active Start: May 14, 2025 End: May 14, 2025 Team Status: Inactive Member Role/Relationship Status Dates Dr. Sana Garcia MD Primary Care Provider Active Start: May 20, 2025 End: May 20, 2025 Dr. Adore Stacy MD Attending Provider Active Start: May 20, 2025 End: May 20, 2025 Dr. Adore Stacy MD Referring Provider Active Start: May 20, 2025 End: May 20, 2025 Team Status: Active Member Role/Relationship Status Dates Dr. Sana Garcia MD Primary Care Provider Active Start: May 23, 2025 Dr. Sana Garcia MD Attending Provider Active Start: May 23, 2025 Dr. Sana Garcia MD Referring Provider Active Start: May 23, 2025 FOR RECORDS PERTAINING TO PATIENTS WHO ARE OR HAVE BEEN ENROLLED IN A CHEMICAL DEPENDENCY/SUBSTANCEABUSE PROGRAM, SOME INFORMATION MAY BE OMITTED. This clinical summary was aggregated from multiple sources. Caution should be exercised in using it in the provision of clinical care. This summary normalizes information from multiple sources, and as a consequence, information in this document may materially change the coding, format and clinical context of patient data. In addition, data may be omitted in some cases. CLINICAL DECISIONS SHOULD BE BASED ON THE PRIMARY CLINICAL RECORDS. [employer] provides no warranty or guarantee of the accuracy or completeness of information in this document.
== END | disposition home or self-care (01) ==
LOC: SL 10:01
PROVIDERS: PCP Internal Medicine; Referring Provider Internal Medicine; Visit Provider Internal Medicine
DX: G47.10 Hypersomnia, unspecified (principal)
CPT/HCPCS: 95806

== ENCOUNTER → 2025-06-06 | Outpatient (CLI) | payer OTHER, SELFPAY | END | disposition home or self-care (01) | PROVIDERS: PCP Internal Medicine; Referring Provider Internal Medicine; Visit Provider Internal Medicine | DX: G47.10 Hypersomnia, unspecified (principal) | CPT/HCPCS: 95806 ==